=== PATIENT | female | born 1945 | race Caucasian/White ===

== ENCOUNTER 2016-06-05 15:07 | Emergency (ER) | payer OTHER, MEDICARE ==
[2016-06-05 15:18] VITALS: TEMP 97.3
--- NOTE | 2016-06-05 15:20 | EDPHY ---
H & P Time Seen by Provider: 06/05/16 15:18 HPI/ROS: CHIEF COMPLAINT: Altered mental status HISTORY OF PRESENT ILLNESS: Patient is a history of insulin-dependent diabetes and was last known to be normal at 9:00 a.m. today. Her later could return on the telephone, got a hold of the neighbor who got into the house through a garage door, and found the patient unresponsive in the house. Her glucose on EMS arrival was 28, she got 25 g IV dextrose bring her glucose up above 160, and at the time I see her she is awake and has no complaints and is normally conversant. Denies biting her tongue. No headache chest pain neck or back pain. Not incontinent. She tells me she used her insulin without eating and that is likely why she was low as she has been low before. REVIEW OF SYSTEMS: Eye: no change in vision ENT: no sore throat Cardiac: no chest pain or syncope Pulmonary: no cough or SOB Abdomen: no vomiting, diarrhea, abdominal pain Musculoskeletal: no back pain Skin: no rash Neuro: no headache Constitutional: no fever : no urinary symptoms A comprehensive 10 point review of systems is otherwise negative aside from elements mentioned in the history of present illness. PAST MEDICAL HISTORY: Includes insulin-dependent diabetes Social history: , but her 's out of town General Appearance: Alert and conversant, cooperative. Eyes: No scleral icterus. ENT, Mouth: Normal mucous membranes. No tongue laceration or abrasion Respiratory: Normal respiratory effort, breath sounds equal, lungs are clear to auscultation. Cardiovascular: Regular rate and rhythm. 2/6 systolic murmur. Gastrointestinal: Abdomen is soft and non tender. Neurological: Alert and oriented x3. Normally conversant. Face symmetric, normal movement and sensation in all extremities. Skin: Warm and dry, no rashes. Musculoskeletal: No peripheral edema and no joint swelling. Ulnar deviation both hands consistent with her known history of arthritis Psychiatric: Not agitated. Emergency Department course/MDM: Food, CBC chemistry, EKG in urine. Likely diabetic hypoglycemia from insulin and not enough carbohydrates. Called Dr. Mayers at 1526; recommends admit for serial glucose checks. [facility] came to the emergency department to assume care the patient and ultimately dispositioned her to home. Smoking Status: Former smoker Constitutional: Initial Vital Signs Temperature (C) 36.3 C 06/05/16 15:16 Heart Rate 76 06/05/16 15:16 Respiratory Rate 12 06/05/16 15:16 Blood Pressure 181/93 H 06/05/16 15:16 O2 Sat (%) 97 06/05/16 15:16 O2 Delivery Mode Room Air Allergies/Adverse Reactions: ciprofloxacin HCl [From Cipro] Allergy (Verified 02/18/14 11:54) codeine Allergy (Verified 02/18/14 11:54) ibuprofen [From Motrin] Allergy (Verified 02/18/14 11:54) Sulfa (Sulfonamide Antibiotics) Allergy (Verified 02/18/14 11:54) Home Medications: Medication Instructions Recorded Bupropion HCl [Wellbutrin Xl] 300 mg PO DAILY 11/09/12 Estradiol [Estrace Vaginal (*)] 1 manju VG HS PRN 11/09/12 Folic Acid [Folic Acid 1 MG (*)] 1 mg PO DAILY 11/09/12 Insulin Pump, Patient Own 1 ea [facility] [place] AD 11/09/12 Levothyroxine [Synthroid 88 mcg 88 mcg PO DAILY06 11/09/12 (*)] Metoprolol Succinate Xr [Toprol Xl 25 mg PO HS 11/09/12 25 mg (*)] Rosuvastatin Calcium [Crestor] 10 mg PO HS 11/09/12 Zolpidem Tartrate [Ambien 10 mg] 5 mg PO HS 11/09/12 predniSONE 5 mg PO DAILY 11/09/12 Certolizumab Pegol [CIMZIA] 200 mg SQ Q14D 02/18/14 Aspirin EC [Aspirin EC 81 mg (*)] 81 mg PO HS 06/05/16 Calcium Carb W/Vit D [Calcium Carb 500 mg PO BID 06/05/16 W/Vit D 500/200 (*)] Cyclobenzaprine [Flexeril 10 MG 5 mg PO HS 06/05/16 (*)] Denosumab [Prolia] 60 mg SQ .[id number] 06/05/16 Escitalopram Oxalate [Lexapro] 10 mg PO DAILY 06/05/16 Fluocinolone 0.01% [Synalar 0.01% 1 manju TP BID PRN 06/05/16 (RX)] Glucagon,Human Recombinant 1 mg IJ PRN PRN 06/05/16 [Glucagon Emergency Kit] Herbals/Supplements -Info Only 1 ea PO DAILY18 06/05/16 Losartan Potassium [Cozaar 50 mg 50 mg PO DAILY 06/05/16 (*)] Methotrexate Sodium [Rheumatrex 7.5 mg PO LYONS 06/05/16 2.5 mg (RX)] Mupirocin 2% [Bactroban 2% Oint 1 manju TP TID 06/05/16 (RX)] Niacin [Slo-Niacin] 1,000 mg PO HS 06/05/16 Pregabalin [Lyrica 75mg (*)] 75 mg PO TID 06/05/16 oxyCODONE/APAP 5/325 [Percocet 1 tab PO TID 06/05/16 5325 (*)] Medical Decision Making - Data Points Laboratory Results: Laboratory Results 06/05/16 15:20 06/05/16 15:20 06/05/16 06/05/16 06/05/16 16:56 16:38 15:20 WBC RBC Hgb POC Hgb 13.6 gm/dL gm/dL (12.3-15.9) Hct POC Hct 40 % % (35.5-47.5) MCV MCH MCHC RDW Plt Count MPV Neut % (Auto) Lymph % (Auto) [place] % (Auto) Eos % (Auto) Baso % (Auto) Nucleat RBC Rel Count Absolute Neuts (auto) Absolute Lymphs (auto) Absolute Monos (auto) Absolute Eos (auto) Absolute Basos (auto) Absolute Nucleated RBC Immature Gran % Immature Gran # POC Sodium 134 mEq/L mEq/L (134-144) Sodium 139 mEq/L mEq/L (134-144) POC Potassium > 9.0 mEq/L H* mEq/L (3.3-5.0) Potassium 4.2 mEq/L mEq/L (3.5-5.2) POC Chloride 109 mEq/L H mEq/L (96-108) Chloride 105 mEq/L mEq/L (97-110) Carbon Dioxide 25 mEq/l mEq/l (22-31) Anion Gap 9 mEq/L mEq/L (8-16) POC BUN 30 mg/dL H mg/dL (7-23) BUN 22 mg/dL mg/dL (7-23) Creatinine 0.8 mg/dL mg/dL (0.6-1.0) POC Creatinine 0.8 mg/dL mg/dL (0.6-1.2) Estimated GFR > 60 Glucose 84 mg/dL mg/dL (70-100) POC Glucose 173 mg/dL H mg/dL (70-100) Calcium 9.1 mg/dL mg/dL (8.5-10.4) Urine Color PALE YELLOW Urine Appearance CLEAR Urine pH 8.0 H (5.0-7.5) Ur Specific [place] 1.009 (1.002-1.030) Urine Protein 2+ H (NEGATIVE) Urine Ketones NEGATIVE (NEGATIVE) Urine Blood NEGATIVE (NEGATIVE) Urine Nitrate NEGATIVE (NEGATIVE) Urine Bilirubin NEGATIVE (NEGATIVE) Urine Urobilinogen NEGATIVE EU EU (0.2-1.0) Ur Leukocyte Esterase NEGATIVE (NEGATIVE) Urine RBC 1-3 /hpf /hpf (0-3) Urine WBC 1-3 /hpf /hpf (0-3) Ur Epithelial Cells NONE SEEN /lpf /lpf (NONE-1+) Ur Culture Indicated? NOT INDICATED (NI) Urine Glucose 1+ H (NEGATIVE) 06/05/16 06/05/16 15:20 15:17 WBC 9.85 10^3/uL H 10^3/uL (3.80-9.50) RBC 4.03 10^6/uL L 10^6/uL (4.18-5.33) Hgb 13.8 g/dL g/dL (12.6-16.3) POC Hgb 15.3 gm/dL gm/dL (12.3-15.9) Hct 40.9 % % (38.0-47.0) POC Hct 45 % % (35.5-47.5) MCV 101.5 fL H fL (81.5-99.8) MCH 34.2 pg H pg (27.9-34.1) MCHC 33.7 g/dL g/dL (32.4-36.7) RDW 14.9 % % (11.5-15.2) Plt Count 300 10^3/uL 10^3/uL (150-400) MPV 10.2 fL fL (8.7-11.7) Neut % (Auto) 71.5 % % (39.3-74.2) Lymph % (Auto) 17.0 % % (15.0-45.0) War[place] % (Auto) 7.9 % % (4.5-13.0) Eos % (Auto) 2.1 % % (0.6-7.6) Baso % (Auto) 0.8 % % (0.3-1.7) Nucleat RBC Rel Count 0.0 % % (0.0-0.2) Absolute Neuts (auto) 7.04 10^3/uL H 10^3/uL (1.70-6.50) Absolute Lymphs (auto) 1.67 10^3/uL 10^3/uL (1.00-3.00) Absolute Monos (auto) 0.78 10^3/uL 10^3/uL (0.30-0.80) Absolute Eos (auto) 0.21 10^3/uL 10^3/uL (0.03-0.40) Absolute Basos (auto) 0.08 10^3/uL 10^3/uL (0.02-0.10) Absolute Nucleated RBC 0.00 10^3/uL 10^3/uL (0-0.01) Immature Gran % 0.7 % % (0.0-1.1) Immature Gran # 0.07 10^3/uL 10^3/uL (0.00-0.10) POC Sodium 142 mEq/L mEq/L (134-144) Sodium POC Potassium 4.2 mEq/L mEq/L (3.3-5.0) Potassium POC Chloride 103 mEq/L mEq/L (96-108) Chloride Carbon Dioxide Anion Gap POC BUN 25 mg/dL H mg/dL (7-23) BUN Creatinine POC Creatinine 0.9 mg/dL mg/dL (0.6-1.2) Estimated GFR Glucose POC Glucose 88 mg/dL mg/dL (70-100) Calcium Urine Color Urine Appearance Urine pH Ur Specific [place] Urine Protein Urine Ketones Urine Blood Urine Nitrate Urine Bilirubin Urine Urobilinogen Ur Leukocyte Esterase Urine RBC Urine WBC Ur Epithelial Cells Ur Culture Indicated? Urine Glucose Point of Care Test Results: 06/05/16 06/05/16 15:17 16:56 POC Sodium 142 134 POC Potassium 4.2 > 9.0 H* POC Chloride 103 109 H POC BUN 25 H 30 H POC Creatinine 0.9 0.8 POC Glucose 88 173 H Departure - Departure Disposition: Home, Routine, Self-Care Clinical Impression: Hypoglycemia due to type 1 diabetes mellitus Condition: Good Instructions: Hypoglycemia in a Person with Diabetes (ED) Referrals: Cady Johnson MD [Primary Care Provider] - As per Instructions
--- NOTE | 2016-06-05 15:35 | CPEKG ---
Heart Rate: 68 RR Interval: 882 P-R Interval: 139 QRSD Interval: 82 QT Interval: 444 QTC Interval: 473 P [place]: 0 QRS [place]: -24 T Wave [place]: 52 EKG Severity - OTHERWISE NORMAL ECG - EKG Impression: SINUS RHYTHM EKG Impression: BORDERLINE LEFT AXIS DEVIATION Electronically Signed By: Osman Avila 05-Jun-2016 16:12:34
[2016-06-05 15:40] LABS: % IMMATURE GRANULYOCYTES 0.7 % (0.0-1.1); ABSOLUTE IMMATURE GRANULOCYTES 0.07 10^3/uL (0.00-0.10); ADD DIFF? NO; ADD MORPH? NO; ADD SCAN? NO; ATYPICAL LYMPHOCYTE FLAG 10 (0-99); FRAGMENT RBC FLAG 0 (0-99); HEMATOCRIT 40.9 % (38.0-47.0); HEMOGLOBIN 13.8 g/dL (12.6-16.3); LEFT SHIFT FLG 0 (0-99); LIPEMIA HEMOLYSIS FLAG 80 (0-99); MEAN CELL HEMOGLOBIN 34.2 pg (27.9-34.1); MEAN CELL HEMOGLOBIN CONCENTR. 33.7 g/dL (32.4-36.7); MEAN CELL VOLUME 101.5 fL (81.5-99.8); MEAN PLATELET VOLUME 10.2 fL (8.7-11.7); PLATELET CLUMPS FLAG 10 (0-99); PLATELET COUNT 300 10^3/uL (150-400); RED BLOOD CELL COUNT 4.03 10^6/uL (4.18-5.33); RED CELL DISTRIBUTION WIDTH 14.9 % (11.5-15.2)
[2016-06-05 16:07] LABS: ANION GAP 9 mEq/L (8-16); CALCIUM 9.1 mg/dL (8.5-10.4); CARBON DIOXIDE 25 mEq/l (22-31); CHLORIDE 105 mEq/L (97-110); CREATININE 0.8 mg/dL (0.6-1.0); GLOMERULAR FILTRATION RATE > 60; GLUCOSE 84 mg/dL (70-100); POTASSIUM 4.2 mEq/L (3.5-5.2); SODIUM 139 mEq/L (134-144)
[2016-06-05 16:26] VITALS: BP 155/82; PULSE 65; RESP 16; O2SAT 98
[2016-06-05 17:08] LABS: COLOR PALE YELLOW; LEUKOCYTE ESTERASE,URINE NEGATIVE (NEGATIVE); NITRITE,URINE NEGATIVE (NEGATIVE)
--- NOTE | 2016-06-05 17:14 | PDCONSULT ---
Paralegal Supervisor Note: Met with patient. Hx reviewed, pt examined. She is feeling back to normal. Had plans to go to [place] tomorrow morning to spend a month there. Her is already there. The neighbor/friend who found her this morning is willing to stay with her tonight. She is used to having low blood sugars. Spoke with Dr. Mayers as well. As pt herself feels back to normal, we both feel it is ok for her to go home, as she will be supervised overnight, and then will be driven to airport in morning. It is a 90 minute flight, and she will be met by her at the airport. She will call Dr. Mayers if any concerns. Also advised her to decrease her insulin boluses. Dr. Mayers will check in with pt on Tuesday06/07/16, to adjust her insulin dosing. Blood sugars in ED have been ok.
== END 2016-06-05 17:15 | disposition home or self-care (01) ==
LOC: EDUNIT# → UNDOADMOB 15:36
DX: E10.649 Type 1 diabetes mellitus with hypoglycemia without coma (principal); Z87.891 Personal history of nicotine dependence; Z79.82 Long term (current) use of aspirin
CPT/HCPCS: 82947-QW

== ENCOUNTER → 2016-10-08 | Outpatient (CLI) | payer OTHER, MEDICARE | LOC: BHFA 14:00 | PROVIDERS: ATTEND Internal Medicine Cardiovascular Disease | DX: I25.10 Atherosclerotic heart disease of native coronary artery without angina pectoris (principal) | CPT/HCPCS: 78452; 93017; A9500; J2785 ==

== ENCOUNTER → 2016-10-13 | Outpatient (CLI) | payer OTHER, MEDICARE | LOC: FIMAGING 10:36 | PROVIDERS: ATTEND Internal Medicine | DX: Z12.31 Encounter for screening mammogram for malignant neoplasm of breast (principal); Z80.3 Family history of malignant neoplasm of breast | CPT/HCPCS: G0202 ==

== ENCOUNTER → 2016-10-19 | Outpatient (CLI) | payer OTHER, MEDICARE | LOC: BHFA 10:45 | PROVIDERS: ATTEND Internal Medicine Cardiovascular Disease | DX: I35.0 Nonrheumatic aortic (valve) stenosis (principal) ==

== ENCOUNTER 2016-11-03 19:37 | Inpatient (IN) | payer OTHER, MEDICARE ==
--- NOTE | 2016-11-03 20:04 | CPEKG ---
Heart Rate: 75 RR Interval: 800 P-R Interval: 156 QRSD Interval: 72 QT Interval: 392 QTC Interval: 438 P [place]: 61 QRS [place]: -7 T Wave [place]: 34 EKG Severity - NORMAL ECG - EKG Impression: SINUS RHYTHM Electronically Signed By: Agnes Cade 03-Nov-2016 21:28:22
--- NOTE | 2016-11-03 20:06 | EDPHY ---
H & P Stated Complaint: D-DIMER TODAY , HEADACHES AND COUGH X4 DAYS, SENT BY DOCTOR Time Seen by Provider: 11/03/16 19:40 HPI/ROS: CHIEF COMPLAINT: Headache, cough HISTORY OF PRESENT ILLNESS: This is a 71-year-old female who presents to the emergency department after being seen by her primary care physician earlier today with a positive D-dimer in the setting of a cough and recent travel. Patient relates that over the last 4 days she has had at very slight runny nose , cough productive of clear sputum, small amount of anterior chest tightness and a headache. She was seen by her primary care physician today. She had clear lungs, chest x-ray was not obtained, the patient was sent to have labs drawn. Patient's primary physician, Dr. Don, notice some tenderness over her temporal arteries. Sed rate as well as CRP were ordered as well as a D-dimer. Patient's D-dimer is elevated at 2.35. The patient was advised to return to the emergency department for further evaluation. Patient has no history of thromboembolic disease. She did travel back from [place], via airplane, over the weekend. She was seen by Dr. Clark, her primary manager communication 2 days ago for routine checkup. She also reports that 10 days ago she underwent a stress test, and echocardiogram which did not identify any acute abnormalities. Patient does report a small amount of edema at both ankles. Patient reports a low-grade fever. Her has also been ill with slight runny nose. She denies any palpitations, lightheadedness, dizziness. She denies any vomiting or diarrhea. No urinary complaints. Headache is bitemporal. No visual changes. No head trauma. Patient does report she feels "spacey ". REVIEW OF SYSTEMS: Aside from elements discussed in the HPI, a comprehensive 10-point review of systems was reviewed and is negative. PAST MEDICAL HISTORY: Insulin-dependent diabetes, rheumatoid arthritis, lupus, coronary artery disease with stents placed x2, hypertension, osteoporosis, hypothyroidism. SOCIAL HISTORY: Patient is here with her . VITAL SIGNS Reviewed by me. GENERAL: Pleasant, elderly female. Well-developed well-nourished. No respiratory distress. HEENT: Atraumatic. [place], EOMI. Mild tenderness along the bilateral temples. Eyes: No icterus, no injection. Mouth: Dry mucous membranes. No erythema or lesions. Neck: supple with no adenopathy. No meningismus. LUNGS: Clear to auscultation bilaterally, no wheezes, rhonchi or rales. CARDIAC: Regular rate and rhythm, prominent systolic ejection murmur. ABDOMEN: Soft, nontender, nondistended, bowel sounds normal. BACK: No CVA tenderness. EXTREMITIES: No trauma. Mild swelling at both ankles. Deformities and swelling of multiple finger joint secondary to rheumatoid arthritis. NEURO: Alert and oriented, grossly nonfocal. SKIN: Warm and dry, no rash. PSYCHIATRIC: Normal mentation, no agitation. - Personal History Current Tetanus/Diphtheria Vaccine: Yes Tetanus Vaccine Date: 2014 - Medical/Surgical History Hx Asthma: No Hx Chronic Respiratory Disease: No Hx Diabetes: Yes Hx Cardiac Disease: Yes Hx Renal Disease: No Hx Cirrhosis: No Hx Alcoholism: No Hx HIV/AIDS: No Hx Splenectomy or Spleen Trauma: No Other PMH: medical Htn, diabetes, arthritis(RA), Lupus,CAD. surgery back surgery x 6, right wrist repair, tonsillectomy, cardiac stents x2 , MAC DEGEN, OSTEOPOROSIS,HYPOTHYROID, - Social History Smoking Status: Former smoker Constitutional: Initial Vital Signs Temperature (C) 37.6 C 11/03/16 19:41 Heart Rate 82 11/03/16 19:41 Respiratory Rate 20 11/03/16 19:41 Blood Pressure 95/63 L 11/03/16 19:41 O2 Sat (%) 94 11/03/16 19:41 O2 Delivery Mode Room Air Allergies/Adverse Reactions: ciprofloxacin HCl [From Cipro] Allergy (Verified 11/03/16 19:40) codeine Allergy (Verified 11/03/16 19:40) ibuprofen [From Motrin] Allergy (Verified 11/03/16 19:40) Sulfa (Sulfonamide Antibiotics) Allergy (Verified 11/03/16 19:40) cephalexin [From Keflex] Adverse Reaction (Unverified 11/03/16 19:41) Home Medications: Medication Instructions Recorded Bupropion HCl [Wellbutrin Xl] 300 mg PO DAILY 11/09/12 Estradiol [Estrace Vaginal (*)] 1 manju VG HS PRN 11/09/12 Folic Acid [Folic Acid 1 MG (*)] 1 mg PO DAILY 11/09/12 Insulin Pump, Patient Own 1 ea MISC AD 11/09/12 Levothyroxine [Synthroid 88 mcg 88 mcg PO DAILY06 11/09/12 (*)] Metoprolol Succinate Xr [Toprol Xl 25 mg PO HS 11/09/12 25 mg (*)] Rosuvastatin Calcium [Crestor] 10 mg PO HS 11/09/12 Zolpidem Tartrate [Ambien 10 mg] 5 mg PO HS 11/09/12 predniSONE 5 mg PO DAILY 11/09/12 Aspirin EC [Aspirin EC 81 mg (*)] 81 mg PO HS 06/05/16 Calcium Carb W/Vit D [Calcium Carb 500 mg PO BID 06/05/16 W/Vit D 500/200 (*)] Cyclobenzaprine [Flexeril 10 MG 5 mg PO HS 06/05/16 (*)] Denosumab [Prolia] 60 mg SQ .[id number] 06/05/16 Escitalopram Oxalate [Lexapro] 10 mg PO DAILY 06/05/16 Fluocinolone 0.01% [Synalar 0.01% 1 manju TP BID PRN 06/05/16 (RX)] Glucagon,Human Recombinant 1 mg IJ PRN PRN 06/05/16 [Glucagon Emergency Kit] Herbals/Supplements -Info Only 1 ea PO DAILY18 06/05/16 Losartan Potassium [Cozaar 50 mg 50 mg PO DAILY 06/05/16 (*)] Methotrexate Sodium [Rheumatrex 7.5 mg PO LYONS 06/05/16 2.5 mg (RX)] Mupirocin 2% [Bactroban 2% Oint 1 manju TP TID 06/05/16 (RX)] Niacin [Slo-Niacin] 1,000 mg PO HS 06/05/16 Pregabalin [Lyrica 75mg (*)] 75 mg PO TID 06/05/16 oxyCODONE/APAP 5/325 [Percocet 1 tab PO TID 06/05/16 5/325 (*)] AZITHROMYCIN 11/03/16 Xeljanz 11/03/16 Medical Decision Making - Diagnostics Imaging Results: Imaging Impressions Chest/Thorax CTA 11/03/16 20:10 Impression: 1. No pulmonary embolic disease. 2. Coronary artery and possible aortic valve disease. 3. No pneumonia. Results were discussed with Agnes Cade MD, at 11/03/2016 20:55 General information for patients regarding this examination can be found at [email or web address]. If you have questions or comments about this report, please contact me at [phone] (hospital) or [phone] (cell). ED Course/Re-evaluation: 71-year-old patient presents to the emergency department with reports of cough, low-grade fever, and some chest tightness for 4 days. EKG demonstrates sinus rhythm with no ischemic changes. Patient's sodium is 126. She has been complaining of feeling somewhat fuzzy in the head. Troponin is elevated 0.069. Results: CT scan of the chest for pulmonary embolism was obtained. I viewed the images independently on the PACS system. I discussed the results of the study with the radiologist. Impression: No pneumonia, no pulmonary embolism. Please see the full radiology report. Patient will be admitted to the hospital for further evaluation of her borderline the elevated troponin, her BNP of 2170, her cough, her chest tightness and her hyponatremia. Differential Diagnosis: Differential diagnosis for the patient's cough was considered including but not limited to viral versus bacterial bronchitis, asthma, COPD, pulmonary emboli, upper respiratory infection, lower respiratory infection, cardiac causes, pulmonary edema, and bronchospasm. Consult/Admit Bed Type: Dr. Don, [facility] - Data Points Laboratory Results: Laboratory Results 11/03/16 20:07 11/03/16 20:07 11/03/16 11/03/16 11/03/16 20:07 20:07 20:00 WBC 3.13 10^3/uL L 10^3/uL (3.80-9.50) RBC 3.40 10^6/uL L 10^6/uL (4.18-5.33) Hgb 11.7 g/dL L g/dL (12.6-16.3) POC Hgb 12.9 gm/dL gm/dL (12.6-16.3) Hct 33.6 % L % (38.0-47.0) POC Hct 38 % % (38-47) MCV 98.8 fL fL (81.5-99.8) MCH 34.4 pg H pg (27.9-34.1) MCHC 34.8 g/dL g/dL (32.4-36.7) RDW 15.1 % % (11.5-15.2) Plt Count 211 10^3/uL 10^3/uL (150-400) MPV 9.7 fL fL (8.7-11.7) Neut % (Auto) 41.8 % % (39.3-74.2) Lymph % (Auto) 37.1 % % (15.0-45.0) Bertie % (Auto) 19.5 % H % (4.5-13.0) Eos % (Auto) 0.3 % L % (0.6-7.6) Baso % (Auto) 1.0 % % (0.3-1.7) Nucleat RBC Rel Count 0.0 % % (0.0-0.2) Absolute Neuts (auto) 1.31 10^3/uL L 10^3/uL (1.70-6.50) Absolute Lymphs (auto) 1.16 10^3/uL 10^3/uL (1.00-3.00) Absolute Monos (auto) 0.61 10^3/uL 10^3/uL (0.30-0.80) Absolute Eos (auto) 0.01 10^3/uL L 10^3/uL (0.03-0.40) Absolute Basos (auto) 0.03 10^3/uL 10^3/uL (0.02-0.10) Absolute Nucleated RBC 0.00 10^3/uL 10^3/uL (0-0.01) Immature Gran % 0.3 % % (0.0-1.1) Immature Gran # 0.01 10^3/uL 10^3/uL (0.00-0.10) POC Sodium 129 mEq/L L mEq/L (134-144) Sodium 126 mEq/L L mEq/L (134-144) POC Potassium 4.3 mEq/L mEq/L (3.3-5.0) Potassium 4.3 mEq/L mEq/L (3.5-5.2) POC Chloride 91 mEq/L L mEq/L (97-110) Chloride 91 mEq/L L mEq/L (97-110) Carbon Dioxide 24 mEq/l mEq/l (22-31) Anion Gap 11 mEq/L mEq/L (8-16) POC BUN 16 mg/dL mg/dL (7-23) BUN 16 mg/dL mg/dL (7-23) Creatinine 1.0 mg/dL mg/dL (0.6-1.0) POC Creatinine 1.1 mg/dL H mg/dL (0.6-1.0) Estimated GFR 55 Glucose 176 mg/dL H mg/dL (70-100) POC Glucose 184 mg/dL H mg/dL (70-100) Calcium 8.7 mg/dL mg/dL (8.5-10.4) Troponin I 0.069 ng/mL H ng/mL (0.000-0.034) NT-Pro-B Natriuret Pep 2170 pg/mL H pg/mL (0-125) Medications Given: Discontinued Medications Sodium Chloride (Ns) 500 mls @ 1,000 mls/hr IV EDNOW ONE PRN Reason: Protocol Stop: 11/03/16 20:39 Last Admin: 11/03/16 20:16 Dose: 500 mls Point of Care Test Results: 11/03/16 20:00 POC Sodium 129 L POC Potassium 4.3 POC Chloride 91 L POC BUN 16 POC Creatinine 1.1 H POC Glucose 184 H Departure - Departure Disposition: [facility] Inpatient Acute Clinical Impression: Elevated troponin, Hyponatremia, Cough Condition: Fair Referrals: UNKNOWN,MARCIA [Other] - As per Instructions
[2016-11-03] MEDS ORDERED: NS 500 ML IV ONE (20:10)
[2016-11-03] MEDS ORDERED: IOPAMIDOL (ISOVUE 370) 100 ML BTL IV ONE (20:17)
[2016-11-03 20:22] LABS: % IMMATURE GRANULYOCYTES 0.3 % (0.0-1.1); ABSOLUTE IMMATURE GRANULOCYTES 0.01 10^3/uL (0.00-0.10); ADD DIFF? NO; ADD MORPH? NO; ADD SCAN? NO; ATYPICAL LYMPHOCYTE FLAG 0 (0-99); FRAGMENT RBC FLAG 0 (0-99); HEMATOCRIT 33.6 % (38.0-47.0); HEMOGLOBIN 11.7 g/dL (12.6-16.3); LEFT SHIFT FLG 0 (0-99); LIPEMIA HEMOLYSIS FLAG 90 (0-99); MEAN CELL HEMOGLOBIN 34.4 pg (27.9-34.1); MEAN CELL HEMOGLOBIN CONCENTR. 34.8 g/dL (32.4-36.7); MEAN CELL VOLUME 98.8 fL (81.5-99.8); MEAN PLATELET VOLUME 9.7 fL (8.7-11.7); PLATELET CLUMPS FLAG 0 (0-99); PLATELET COUNT 211 10^3/uL (150-400); RED CELL DISTRIBUTION WIDTH 15.1 % (11.5-15.2)
[2016-11-03 20:26] LABS: ANION GAP 11 mEq/L (8-16); CALCIUM 8.7 mg/dL (8.5-10.4); CARBON DIOXIDE 24 mEq/l (22-31); CHLORIDE 91 mEq/L (97-110); GLOMERULAR FILTRATION RATE 55; GLUCOSE 176 mg/dL (70-100); POTASSIUM 4.3 mEq/L (3.5-5.2); SODIUM 126 mEq/L (134-144)
[2016-11-03 20:38] LABS: TROPONIN I 0.069 ng/mL (0.000-0.034)
[2016-11-03] MEDS ORDERED: ASPIRIN 81 MG CHEWABLE TAB PO ONE (21:07)
--- NOTE | 2016-11-03 23:08 | SOAPPROG ---
KELLIE Progress Note Assessment/Plan: Assessment: Plan: 11/03/16 23:28 CHF: based on elevated BNP. Appears to be mildly fluid overloaded with edema, low Na. Just had echo done 10/19/16 which showed mild concentric hypertrophy, normal LV function with EF 67%, LV diastolic dysfunction, normal RV function with normal pressures, stable moderate aortic stenosis with aortic valve area .92cm2. Given that she is clinically stable, will wait until the morning to give dose lasix. As far as I can tell, BNP has not been checked in past. Indeterminate troponin: Had normal stress test on 10/08/16. Additionally, her coronary calcium score has been very stable. On her most recent EBCT heart scan , her Agatston score had regressed by 1%. She has 3 vessel disease with hx of stenting. Doubt that her troponin is due to ischemia, but will follow. EKG normal, without ischemic change. Hyponatremia: suspect this is due to fluid overload as it is not usual for her. Na went down a little with 500 cc fluid bolus in ED. As noted above, will give dose lasix in morning. IDDM: having low blood sugars, so will monitor closely. Food options currently quite limited here in hospital as pt is also gluten free. Elevated ESR, CRP: I was concerned about possibility of temporal arteritis given PERALTA, mild tenderness over L temporal artery. Last CRP and ESR in office chart were done in 07/21 and were normal. She did see Dr. Poe recently, but that note is not in office chart. In the setting of RA, it is difficult to know if these elevated numbers are related to exacerbation of RA or not. She was just changed over from Cimzia to Xeljanz 10 days ago. Will reassess need for possible biopsy in morning. Rheumatoid arthritis: on methotrexate, Xeljanz, low dose prednisone, percocet, lyrica. Aortic stenosis: stable on recent echo Cough: started on Zpak earlier today. Has taken 500mg today, so will continue with 250mg daily starting tomorrow. Hyptension: on losartan, metoprolol. Will continue. Hyperlipidemia: on Crestor Hypothyroid: on levothyroxine. DVT Prophylaxis: lovenox 11/03/16 23:31 11/04/16 00:06 Subjective: 71 yo woman with hx of type 1 diabetes, RA, CAD was seen in the office today for a cough and PERALTA. Sx began 4 days ago, after returning from trip to [place]. Flew home 10/31/16, and that day developed PERALTA, cough productive of minimal clear sputum, fatigue. She felt mildly SOB and chest felt heavy. C/o fatigue, fuzzy memory, and spent a lot of time resting. She had a low grade temp to 99.2. No sore throat, sinus pain. Headache was in the region of both temples. In the office, her O2 saturation was mildly low at 89%. She was mildly tender over her L temporal artery, but the remainder of her exam was unremarkable. She did see her manager procurement, Dr. Clark on 11/01/16, and noted some increased lower extremity edema, but this was improved by today. Due to her recent travel hx, mild hypoxia, SOB, and chest heaviness, a d-dimer was checked and found to be elevated at 2.35. ESR was also high at 52, and CRP was up at 14.2. Due to the elevated d-dimer, pt was contacted and advised to go to ER for further evaluation. In the ED, CT angiogram was negative for PE. EKG was normal. Her troponin was indeterminate at 0.069. BNP was high at 2170, Na low at 129, so she was admitted for further evaluation. Currently, she isn't feeling very well. Her PERALTA resolved, though she feels it is coming back. She feels her blood sugar is low. It was checked and was found to be <40. She has had some orange juice and applesauce and is feeling better. She is on an insulin pump. She didn't feel very hungry this evening so didn't eat much dinner. Objective: Vital Signs Temp Pulse Resp BP Pulse Ox 37.6 C 64 14 127/71 H 90 L 11/03/16 22:06 11/03/16 22:06 11/03/16 22:06 11/03/16 22:06 11/03/16 22:06 General: tired appearing, eyes a little droopy, NAD HEENT: Normocephalic, atraumatic. PERRL, EOMI. Mild tenderness over L temporal artery. R TM obscured by cerumen. L TM clear. Sinuses NT. O/p without erythema, exudates Neck: supple, no adenopathy Lungs: clear bilaterally Cardiovascular: RRR with 3/6 systolic murmur Abdomen: +bowel sounds, soft, NT. No hepatosplenomegaly, masses Extremities: mild BLE edema Musculoskeletal: deformity in hands consistent with RA Neurologic: awake, alert though less so as blood sugar drops. No confusion. Moving all extremities. ICD10 Worksheet Patient Problems: Problems Problem Status Onset Cough Acute Elevated troponin Acute Hyponatremia Acute Infection due to resistant organism Active
[2016-11-03] MEDS ORDERED: ACETAMINOPHEN 325 MG TAB PO PRN (23:54)
[2016-11-03] MEDS ORDERED: LACTULOSE 20 GM/30 ML UDCUP PO PRN (23:54)
[2016-11-03] MEDS ORDERED: ONDANSETRON 4 MG/2 ML VIAL IVP PRN (23:54)
[2016-11-03] MEDS ORDERED: MAGNESIUM HYDROXIDE 30 ML UDCUP PO PRN (23:54)
[2016-11-03] MEDS ORDERED: BISACODYL 10 MG SUPP PR PRN (23:54)
[2016-11-03] MEDS ORDERED: ONDANSETRON DISINTEGRATING 4 MG TAB PO PRN (23:54)
[2016-11-03] MEDS ORDERED: POLYETHYLENE GLYCOL 3350 17 GM PKT PO PRN (23:54)
[2016-11-04] MEDS ORDERED: INSULIN PUMP, PATIENT OWN 1 EA MISC SCH
[2016-11-04] MEDS ORDERED: HYDROCODONE/HOMATROPINE HYCODAN 5 ML UDL PO PRN
[2016-11-04] MEDS ORDERED: GLUCAGON HUMAN RECOMBINANT 1 MG IJ PRN
[2016-11-04] MEDS ORDERED: FAMOTIDINE 20 MG TAB PO PRN
[2016-11-04] MEDS ORDERED: D10W 250 ML PRN HYPOGLYCEMIA IV (01:30)
--- NOTE | 2016-11-04 01:39 | GHP ---
[f rep st] HISTORY AND PHYSICAL DATE OF ADMISSION: 11/03/2016 HISTORY OF PRESENT ILLNESS: The patient is a 71-year-old woman with a history of multiple medical problems, including type 1 diabetes, rheumatoid arthritis and coronary artery disease, who was seen in the office today for a cough and headache. Her symptoms began 4 days ago after returning from a trip to [place]. She flew home on Monday, October 31, 2016, and that day developed a headache, a cough productive of a minimal amount of clear sputum, and fatigue. She feels mildly short of breath, and her chest felt somewhat heavy. She was also fatigued and felt her memory was fuzzy. She spent a lot of her time resting and sleeping. At one point, she noted a low-grade temperature of 99.2. She denied any sore throat or sinus pain. Her headache was in the region of both temples. In the office her oxygen saturation was mildly low at 89%. She was mildly tender over her left temporal artery, but the remainder of her exam was unremarkable. She did see her veterans contact representative Dr. Clark on Tuesday, November 01, 2016, and was noted to have some increased lower extremity edema following her flight home, but this is improved today. Due to her recent travel history, mild hypoxia, shortness of breath and chest heaviness, a D-dimer was checked and found to be elevated at 2.35. Sedimentation rate was also high at 52 and CRP was elevated at 14.2. Due to the elevated D-dimer, the patient was contacted and advised to go to the emergency department for further evaluation. In the emergency department, her CT angiogram was negative for pulmonary embolism. There was also no pneumonia. Her EKG was normal. Her troponin was indeterminate at 0.069. Her BNP was elevated at 2170, and her sodium was low 129, so she was admitted for further evaluation. Currently, at the bedside, she is not feeling very well. Her headache has resolved, although she feels it is about to come back. She senses that her blood sugar is low. It was checked and found to be less than 40. She was given some orange juice and apple sauce and is now feeling better. She is on insulin pump. She did not feel very hungry this evening prior to coming to the emergency department, so did not eat much dinner. PAST MEDICAL HISTORY: Significant for coronary artery disease status post 2 stents in 2003, high cholesterol, shingles, hypertension, nocturnal hypoxia, insulin-dependent diabetes mellitus, aortic stenosis, rheumatoid arthritis, lupus in remission, hypothyroidism, and osteoporosis. MEDICATIONS: Lexapro 10 mg daily, bupropion XL 300 mg daily, prednisone 5 mg daily, mupirocin 2% ointment 3 times daily, Crestor 10 mg daily, losartan 100 mg daily, zolpidem 5 mg at bedtime, cyclobenzaprine 10 mg 1/2 to 1 tablet at bedtime, glucagon emergency kit as needed, fluocinolone acetonide 0.01% to affected areas b.i.d., Metoprolol succinate extended release 25 mg daily, nicotinic acid 1000 mg daily though she has recently discontinued this, Lyrica 75 mg 3 times daily, folic acid 1 mg daily, calcium 600 mg plus D, aspirin 81 mg , levothyroxine 88 mcg daily, Prolia 60 mg/mL subcu every 6 months, methotrexate 2.5 mg once weekly, insulin pump, Zantac 75 mg twice a day, Xeljanz XR 11 mg daily. ALLERGIES: Sulfa, codeine, Motrin, Macrobid, Keflex, gluten. PAST SURGICAL HISTORY: Dupuytren's contracture, facial laser, L2 through L4 fusion redo, left trigger thumb release, L2 kyphoplasty, L3-4 laminectomy, L4-5 fusion, trigger finger right 4th finger, tonsillectomy, adenoidectomy, stent x2 in 2003, L1-2 fusion with extension to L4 by Dr. Goel in 2014, right hand surgery. FAMILY HISTORY: Father at 89, history of CVA, hip fracture. Mother Crohn disease. Sister of sepsis in 2010. She had scleroderma, rheumatoid arthritis, and osteoarthritis. She has 1 brother who is healthy. REVIEW OF SYSTEMS: GENERAL: She is complaining of fatigue, fever, chills, and headache. HEENT: Mild nasal drainage. No sore throat. RESPIRATORY: Mild shortness of breath. Mildly productive cough. No wheezing. CARDIOVASCULAR: Chest heaviness without overt chest pain. No arrhythmias or palpitations. GI: No nausea, vomiting, diarrhea, or constipation. No abdominal pain. : No hematuria, dysuria. MUSCULOSKELETAL: She has pain in her hands and feet from her rheumatoid arthritis. NEUROLOGIC: Her headache has resolved, though maybe coming back. She denies any numbness or tingling. Her mental function does not seem quite so fussy now. PSYCHIATRIC: No depression or anxiety. PHYSICAL EXAMINATION: VITAL SIGNS: Temp is 37.6, pulse is 64, respirations 14 , blood pressure 127/71, O2 saturation is 90% on room air. LABORATORY DATA: White blood cell count is mildly low at 3.13, hemoglobin 11.7 , hematocrit 33.6, platelet count 211. Sodium is 129, potassium 4.3, chloride 91, BUN 16, creatinine 1.1. Glucose 184. Troponin 0.069. BNP 2170. D-dimer 2.35, sedimentation rate 52, CRP 14.2. EKG shows a normal sinus rhythm. ASSESSMENT AND PLAN: 1. Congestive heart failure. To my knowledge, this is a new diagnosis. This is based on her elevated BNP. She appears to be mildly fluid overloaded with her mild lower extremity edema and low sodium. She just had an echo done October 19, 2016, which showed mild concentric hypertrophy, normal LV function with an EF of 67%, LV diastolic dysfunction. Normal RV function with normal pressures. Stable moderate aortic stenosis with aortic valve area of 0.92 cm. Given that she is clinically stable, will wait until the morning to give her doses of Lasix. As far as I can tell, she has not had a BNP checked in the past. 2. Indeterminate troponin. She had a normal stress test on October 08, 2016. Additionally, her coronary calcium score has been very stable, and on her most recent EBCT heart scan, her Agatston score had actually regressed by 1%. She has 3 vessel disease with a history of stenting. I doubt that her troponin is due to ischemia, but will follow serial troponins. Her EKG is normal without evidence of ischemic change. 3. Hyponatremia. I suspect this is due to fluid overload, as it is not usual for her. Her sodium did go down a little from 129-126 with a 500 mL fluid bolus in the emergency department. As noted above, we will wait until the morning to give her Lasix, so that she is not up all night urinating. 4. Insulin-dependent diabetes mellitus. She is having low blood sugars currently, so we will continue to monitor closely. She is on insulin pump, which she adjusts. Food options are currently quite limited in the hospital at this time of day. The patient is also gluten free. 5. Elevated ESR and CRP. I was concerned about the possibility of temporal arteritis given her headache and mild tenderness over her left temporal artery. Her last CRP and ESR in her office chart were done in July of 2016 and were normal. She did see Dr. Poe recently, but that note is not in her office chart. In the setting of rheumatoid arthritis, it is difficult to note if these elevated numbers are related to an exacerbation of her rheumatoid arthritis or not. She was just changed over from Cimzia to Xeljanz 10 days ago. We will reassess her for possible biopsy in the morning. 6. Rheumatoid arthritis on methotrexate, Xeljanz, prednisone, Percocet, and Lyrica. 7. Aortic stenosis. Stable on echo. 8. Cough. She was started on a Z-Rj earlier today. She has already taken 500 mg today, so we will continue with 250 mg daily starting tomorrow. 9. Hypertension. She is on losartan and metoprolol, and we will continue this. 10. Hyperlipidemia on Crestor. 11. Hypothyroid on levothyroxine. 12. Deep venous thrombosis prophylaxis. Lovenox 30 mg subcu daily. /[id number]/MODL MTDD
[2016-11-04] MEDS ORDERED: OXYCODONE/APAP 5/325 TAB PO ONE (04:45)
[2016-11-04] MEDS ORDERED: CYCLOBENZAPRINE 10 MG TAB PO ONE (04:45)
[2016-11-04 05:34] LABS: ANION GAP 11 mEq/L (8-16); CALCIUM 8.1 mg/dL (8.5-10.4); CARBON DIOXIDE 22 mEq/l (22-31); CHLORIDE 92 mEq/L (97-110); CREATININE 1.1 mg/dL (0.6-1.0); GLOMERULAR FILTRATION RATE 49; GLUCOSE 342 mg/dL (70-100); MAGNESIUM 1.9 mg/dL (1.6-2.3); POTASSIUM 5.2 mEq/L (3.5-5.2); SODIUM 125 mEq/L (134-144)
[2016-11-04 05:40] LABS: TROPONIN I 0.045 ng/mL (0.000-0.034)
[2016-11-04] MEDS: ENOXAPARIN 30 MG/0.3 ML SYR SC SCH (08:45)
[2016-11-04] MEDS: PREGABALIN 75 MG CAP PO SCH ×3 (08:45→21:01)
[2016-11-04] MEDS: OXYCODONE/APAP 5/325 TAB PO SCH ×3 (08:45→22:14)
[2016-11-04] MEDS: ESCITALOPRAM OXALATE 10 MG TAB PO SCH (08:45)
[2016-11-04] MEDS: buPROPion XL 150 MG TAB PO SCH (08:48)
[2016-11-04] MEDS: SENNOSIDES/DOCUSATE SODIUM TAB PO SCH ×2 (08:48→21:03)
[2016-11-04] MEDS: LEVOTHYROXINE 88 MCG TAB PO SCH (08:49)
[2016-11-04] MEDS: predniSONE 5 MG TAB PO SCH (08:49)
[2016-11-04] MEDS: AZITHROMYCIN 250 MG TAB PO SCH (08:49)
[2016-11-04] MEDS: FOLIC ACID 1 MG TAB PO SCH (08:49)
[2016-11-04] MEDS: MUPIROCIN 2% 22 GM OINT TP SCH ×3 (08:50→22:15)
[2016-11-04] MEDS: LOSARTAN POTASSIUM 50 MG TAB PO SCH (08:52)
[2016-11-04 09:35] LABS: ANION GAP 6 mEq/L (8-16); CALCIUM 8.4 mg/dL (8.5-10.4); CARBON DIOXIDE 28 mEq/l (22-31); CHLORIDE 93 mEq/L (97-110); GLOMERULAR FILTRATION RATE 55; GLUCOSE 223 mg/dL (70-100); SODIUM 127 mEq/L (134-144)
[2016-11-04] MEDS ORDERED: FUROSEMIDE 40 MG/4 ML VIAL IVP ONE (09:43)
--- NOTE | 2016-11-04 09:52 | SOAPPROG ---
SOAP Progress Note Assessment/Plan: Assessment: 71 yo female w/ URI, RA, IDDM, w/ hyponatremia - -Hyponatremia - dw Dr Poe not likely 2/2 Xeljanz but more for URI which can be 2/2 Xelanz (known for URI's and h/a's) - given immunosuppression for URI difficult for Doreen to fight infections - was started on azithromycin yesterday , will cont. Will fluid restrict. Concentrated fluids. Will be given single dose lasix now. Will recheck sodium this afternoon. -URI - spouse w/ recent URI, she is on immunosuppressant meds for RA, will hold Xeljanz for now and dw Dr Poe as he just started this 10-14 d prior as her prior med not doing enough. Xeljanz increases frequencies of URI's. Cont azithromycin, cpap, oxygen as needed, add nebs. -RA w/ elev crp/esr - w/ recent change of meds see above - likely inflammatory markers elev from this but does have h/o endocarditis and will check echo and blood cultures to be sure. -IDDM - glucose numbers higher than usual - she is on an insulin pump and knows how to adjust this -she is working on this currently and numbers up 2/2 infection. Cont fsbs check. -elev BNP - known significant ht ds but has been very stable, just had full recent cardiac w/u with Dr Clark last week and all was fine, getting comparison echo this am given h/o endocarditis, immunsupression see above. -dispo - likely will require >2MN due to hyponatremia, URI, immunosuppression and r/o endocarditis. -dvt proph lovenox Plan: 11/04/16 09:44 Subjective: DOing ok, tired, h/a better, coughing Objective: Vital Signs Temp Pulse Resp BP Pulse Ox 36.7 C 70 16 90/52 L 96 11/04/16 07:31 11/04/16 07:31 11/04/16 07:31 11/04/16 08:52 11/04/16 07:31 Laboratory Results 11/04/16 09:05 11/03/16 11/04/16 11/05/16 05:59 05:59 05:59 Intake Total 650 Balance 650 Gen: pleasant, A&Ox 4 NEck: soft supple Chest: few rhonchi cleared w/ cough CV: rrr nl s1 s2, 3/6 SARIKA (not new) Abd: soft nt nd nl bs Ext: trace-1 edema ble - Pending Discharge Pending Discharge Within 24 Hours: No ICD10 Worksheet Patient Problems: Problems Problem Status Onset 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
[2016-11-04] MEDS ORDERED: IPRATROPIUM/ALBUTEROL 3 ML DEYVIAL IH PRN (09:54)
--- NOTE | 2016-11-04 12:17 | ECHO ---
[id number] + + [address] : : [place] [address] : : [phone] + + Adult Echocardiographic Report + -----+ :Name: TOLU IBARRA SStudy Date: 11/04/2016 10:46 AM : : Hospital Admission Number: [id number] Location : 212: :: 1945 Gender: Female Height: 65 in : :Age: 71 yrs Race: WH Weight: 137 lb : :Reason For Study: Eval LV Fx : : BSA: 1.7 meters2 : :History: New onset fluid overlaod, SOB : + -----+ MMode/2D Measurements \T\ Calculations IVSd: 0.80 cm LVIDd: 3.5 cm FS: 38.3 % Ao root diam: 2.8 cm LVPWd: 0.83 cm LVIDs: 2.1 cm EDV(Teich): 49.8 ml ACS: 0.59 cm ESV(Teich): 15.1 ml EF(Teich): 69.6 % LVOT diam: 1.9 cm LVOT area: 2.8 cm2 Normal Measurement Values: + + :LVIDd (3.5-5.7cm) IVSd (0.6-1.1cm) LVPWd (0.6-1.1cm) Aortic Root (2.0-3.7cm)Left Atrium (1.5-4.0cm): :LV Vol(d) (76-115ml) LV Vol(s) (29-48ml) Ejec Fraction (50-65%)PV Peña (0.6- 1.2m/s) TV Peña (0.4-1.0m/s) : :MV E Peña (0.8-1.0m/s)MV A Peña (0.3-1.0m/s)LVOT Peña (0.7-1.2m/s) Asc Ao Peña ( 0.9-1.8m/s) : + + Doppler Measurements \T\ Calculations MV E max peña: Ao V2 max: LV V1 mean PG: SV(LVOT): 84.4 cm/sec 335.3 cm/sec 7.3 mmHg 139.6 ml MV A max peña: Ao max P.0 mmHgLV V1 mean: 97.7 cm/sec Ao mean P.5 cm/sec MV E/A: 0.86 26.1 mmHg LV V1 VTI: 49.2 cm Ao V2 mean: 238.6 cm/sec Ao V2 VTI: 84.0 cm CARLENE(I,D): 1.7 cm2 PA V2 max: TR max peña: 85.5 cm/sec 251.1 cm/sec PA max P.9 mmHg TR max P.2 mmHg RAP systole: 5.0 mmHg RVSP(TR): 30.2 mmHg Left Ventricle The left ventricle is normal in size. There is normal left ventricular wall thickness. The left ventricular ejection fraction is normal. There is Doppler evidence for diastolic dysfunction. Ejection Fraction = 70%. The left ventricular wall motion is normal. Right Ventricle The right ventricle is normal in size and function. Atria The left atrial size is normal. Right atrial size is normal. Mitral Valve There is mild mitral annular calcification. There is no mitral valve stenosis. There is trace mitral regurgitation. Tricuspid Valve Normal tricuspid valve. There is trace tricuspid regurgitation. Right ventricular systolic pressure is normal. Aortic Valve There is moderate aortic valve calcification. The Ao mean PG is 26 mmHg with a Ao max PG mmHg 45 mmHg. Moderate valvular aortic stenosis. There is a calculated aortic valve area of 1.7 cm2. Pulmonic Valve The pulmonic valve is normal in structure and function. There is no pulmonic valvular regurgitation. Great Vessels The aortic root is normal size. Pericardium/Pleural There is no pericardial effusion. Conclusion A complete two-dimensional transthoracic echocardiogram was performed (2D, M-mode, Doppler and color flow Doppler). (1) Left ventricular systolic ejection fraction was normal (70%) - normal wall motion (2) No left ventricular hypertrophy (3) Diastolic dysfunction was present (4) Normal right ventricular size and function (5) Normal atrial dimensions (6) Physiologic mitral regurgitation (7) Trileaflet aortic valve with moderate sclerosis. Mild to moderate stenosis noted as well (mean gradient was 26 mm Hg with ACRLENE estimated to be 1.7 cm\S\2) (8) Physiologic tricuspid regurgitation - RVSP was normal (9) Grossly normal pulmonic valve (10) In comparison to the last hospital echo (02-05-15) the pronounced aortic echo density is not as visible. In comparison to outpatient echocardiogram (10-19-16) similar findings were noted. Final Reading Physician: Bella Rodriguez signed on 11/04/2016 12:16 PM Performed By: Aly Escobar, BHART[facility]
[2016-11-04] MEDS ORDERED: NS 500 ML IV ONE (12:32)
[2016-11-04] MEDS ORDERED: SODIUM CHLORIDE 1,000 MG TAB PO SCH (12:45)
[2016-11-04] MEDS: SODIUM CHLORIDE 1,000 MG TAB PO SCH (17:28)
[2016-11-04] MEDS: NS 1,000 ML IV SCH (19:01)
[2016-11-04] MEDS ORDERED: ROSUVASTATIN CALCIUM 10 MG TAB PO SCH (21:00)
[2016-11-04] MEDS ORDERED: ASPIRIN EC 81 MG TAB PO SCH (21:00)
[2016-11-04] MEDS ORDERED: ZOLPIDEM TARTRATE 5 MG TAB PO SCH (21:00)
[2016-11-04] MEDS ORDERED: CYCLOBENZAPRINE 10 MG TAB PO SCH (21:00)
[2016-11-04] MEDS ORDERED: METOPROLOL SUCCINATE XR 25 MG TAB PO SCH (21:00)
[2016-11-05 03:54] VITALS: O2SAT 97
[2016-11-05 04:57] LABS: % IMMATURE GRANULYOCYTES 0.3 % (0.0-1.1); ABSOLUTE IMMATURE GRANULOCYTES 0.01 10^3/uL (0.00-0.10); ADD DIFF? NO; ADD MORPH? NO; ADD SCAN? NO; ATYPICAL LYMPHOCYTE FLAG 20 (0-99); FRAGMENT RBC FLAG 0 (0-99); HEMATOCRIT 34.4 % (38.0-47.0); HEMOGLOBIN 11.7 g/dL (12.6-16.3); LEFT SHIFT FLG 0 (0-99); LIPEMIA HEMOLYSIS FLAG 90 (0-99); MEAN CELL HEMOGLOBIN 34.6 pg (27.9-34.1); MEAN CELL VOLUME 101.8 fL (81.5-99.8); MEAN PLATELET VOLUME 10.3 fL (8.7-11.7); PLATELET CLUMPS FLAG 0 (0-99); PLATELET COUNT 208 10^3/uL (150-400); RED BLOOD CELL COUNT 3.38 10^6/uL (4.18-5.33); RED CELL DISTRIBUTION WIDTH 15.5 % (11.5-15.2)
[2016-11-05 05:20] LABS: ANION GAP 7 mEq/L (8-16); CARBON DIOXIDE 24 mEq/l (22-31); CHLORIDE 105 mEq/L (97-110); CREATININE 0.9 mg/dL (0.6-1.0); GLOMERULAR FILTRATION RATE > 60; GLUCOSE 131 mg/dL (70-100); POTASSIUM 4.4 mEq/L (3.5-5.2); SODIUM 136 mEq/L (134-144)
[2016-11-05] MEDS: NS 1,000 ML IV SCH (05:43)
[2016-11-05] MEDS ORDERED: FUROSEMIDE 40 MG/4 ML VIAL IVP ONE (06:00)
[2016-11-05 07:57] VITALS: BP 101/46; PULSE 67; RESP 16; TEMP 98.7
[2016-11-05] MEDS: OXYCODONE/APAP 5/325 TAB PO SCH (08:29)
[2016-11-05] MEDS: FOLIC ACID 1 MG TAB PO SCH (08:29)
[2016-11-05] MEDS: buPROPion XL 150 MG TAB PO SCH (08:29)
[2016-11-05] MEDS: LEVOTHYROXINE 88 MCG TAB PO SCH (08:29)
[2016-11-05] MEDS: AZITHROMYCIN 250 MG TAB PO SCH (08:29)
[2016-11-05] MEDS: SENNOSIDES/DOCUSATE SODIUM TAB PO SCH (08:29)
[2016-11-05] MEDS: ENOXAPARIN 30 MG/0.3 ML SYR SC SCH (08:30)
[2016-11-05] MEDS: PREGABALIN 75 MG CAP PO SCH (08:30)
[2016-11-05] MEDS: predniSONE 5 MG TAB PO SCH (08:30)
[2016-11-05] MEDS: LOSARTAN POTASSIUM 50 MG TAB PO SCH (08:30)
[2016-11-05] MEDS: ESCITALOPRAM OXALATE 10 MG TAB PO SCH (08:30)
[2016-11-05] MEDS: SODIUM CHLORIDE 1,000 MG TAB PO SCH (08:30)
[2016-11-05] MEDS: MUPIROCIN 2% 22 GM OINT TP SCH (08:34)
--- NOTE | 2016-11-05 09:05 | SOAPPROG ---
SOAP Progress Note Assessment/Plan: Assessment: Plan: 11/05/16 09:04 bronchitis with immunosuppression--add augmentin TID with food. Rx called to [facility]. Complete Z-pack RA--hold Xeljanz hyponatremia related to illness, normalized, will continue with a balance of liquids and more salt at home, recheck next week Diastolic dysfunction--stable Subjective: Doreen is feeling much better. Cough is still moderately productive. No SOB, No CP. 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
--- NOTE | 2016-11-05 10:09 | ASMTCASEMG ---
Living Arrangements What is your living Answers: With Spouse arrangement? Who do you live with? Type Of Residence What kind of residence do Answers: House you live in? Discharge Plan Comments Coordination Status Comments Notes: Met w/ pt for dispo planning. Pt does not have any needs at this time. CM available for any changes. Date Signed: 11/05/2016 10:09 AM Electronically Signed By:Debbie Palmer
--- NOTE | 2016-11-05 11:20 | ASDISCHSUM ---
Discharge Information Plan Status:Home with No Needs Medically Cleared to Leave:11/05/2016 Discharge Date:11/05/2016 11:05 AM CM D/C Disposition:Home, Routine, Self-Care ADT D/C Disposition:Home, Routine, Self-Care Projected Discharge Date:11/05/2016 12:00 AM Transportation at D/C: Discharge Delay Reason: Follow-Up Date:11/05/2016 12:00 AM Discharge Slot: Final Diagnosis: Placement Information Patient Contact Information Contact Name:LIVE Relationship: Address:[address]ODR[address] City:[place] Alternate Phone: [facility]/Zip Code:[place] [address] Email: Financial Information Financial Class: Primary Plan Desc:MEDICARE INPATIENT Primary Plan Number:[id number] Secondary Plan Desc:[employer]/M[employer] SUPPLEMENT Secondary Plan Number:[id number] Assessment Information [facility] Initial CM Assessment Living Arrangements What is your living Answers: With Spouse arrangement? Who do you live with? Type Of Residence What kind of residence do Answers: House you live in? Discharge Plan Comments Coordination Status Comments Notes: Met w/ pt for dispo planning. Pt does not have any needs at this time. CM available for any changes. Date Signed: 11/05/2016 10:09 AM Electronically Signed By:Debbie Palmer Intervention Information Intervention Type:*AJSIEL-Signed Date of Service:11/04/2016 10:46 AM Patient Type:Observation Staff Member:Tiffany Calabrese Hours: Discipline: Severity: Comment:
[2016-11-07] MEDS ORDERED: METHOTREXATE 2.5 MG TAB PO SCH (09:00)
[2016-12-04] MEDS ORDERED: DENOSUMAB 60 MG/1 ML SQ SCH
== END 2016-11-05 11:05 | disposition home or self-care (01) | DRG 202 ==
LOC: F2W 21:59 → OBSVTOIN 11-04 11:08
PROVIDERS: ADMIT Internal Medicine; ATTEND Internal Medicine
DX: J20.9 Acute bronchitis, unspecified (principal); E87.1 Hypo-osmolality and hyponatremia; E10.649 Type 1 diabetes mellitus with hypoglycemia without coma; Z96.41 Presence of insulin pump (external) (internal); Z91.018 Allergy to other foods; M06.9 Rheumatoid arthritis, unspecified; M32.9 Systemic lupus erythematosus, unspecified; I25.10 Atherosclerotic heart disease of native coronary artery without angina pectoris; Z95.5 Presence of coronary angioplasty implant and graft; I35.0 Nonrheumatic aortic (valve) stenosis; I10 Essential (primary) hypertension; E03.9 Hypothyroidism, unspecified; M81.0 Age-related osteoporosis without current pathological fracture; E78.00 Pure hypercholesterolemia, unspecified; Z98.1 Arthrodesis status; Z87.891 Personal history of nicotine dependence
CPT/HCPCS: 82947-QW; G0378; J1650; J1940; Q9967

== ENCOUNTER → 2017-10-18 | Outpatient (CLI) | payer OTHER, MEDICARE | DX: Z12.31 Encounter for screening mammogram for malignant neoplasm of breast (principal); Z80.3 Family history of malignant neoplasm of breast; Z13.820 Encounter for screening for osteoporosis; M85.88 Other specified disorders of bone density and structure, other site; Z87.39 Personal history of other diseases of the musculoskeletal system and connective tissue; Z78.0 Asymptomatic menopausal state; Z79.83 Long term (current) use of bisphosphonates ==

== ENCOUNTER 2017-10-26 11:51 | Inpatient (IN) | payer OTHER, MEDICARE ==
[2017-10-26] MEDS ORDERED: FLUOCINOLONE 0.01% TP PRN (15:27)
[2017-10-26] MEDS ORDERED: NON-FORMULARY NEW DRUG (Denosumab [Prolia] 60 MG) SQ SCH (15:30)
[2017-10-26] MEDS ORDERED: BIOTENE DRY MOUTH ORAL RINSE 237 ML BTL MM PRN (15:58)
[2017-10-26] MEDS ORDERED: GLUCAGON HCL 1 MG VIAL IM PRN (16:15)
[2017-10-26] MEDS: oxyCODONE IR 5 MG TAB PO PRN ×2 (16:54→22:03)
[2017-10-26] MEDS: PREGABALIN 75 MG CAP PO SCH ×2 (17:00→21:52)
--- NOTE | 2017-10-26 17:45 | GHP ---
[f rep st] HISTORY AND PHYSICAL POST ADMISSION PHYSICIAN EVALUATION AND REHABILITATION TREATMENT PLAN DATE OF ADMISSION: 10/26/2017 DATE OF EVALUATION: 10/26/2017 TIME OF EVALUATION: 1540 REFERRING FACILITY: [facility] REFERRING PHYSICIAN: Jose Manuel Reynaga MD IMPAIRMENT GROUP: [id number]. DATE OF ONSET: 10/22/2017 REHABLITATION DIAGNOSIS: Left femur fracture status post intramedullary nailing. ETIOLOGIC DIAGNOSIS: Unilateral hip fracture. HISTORY OF PRESENT ILLNESS: This patient has osteoporosis as well as rheumatoid arthritis and has been on chronic prednisone. She fell on 10/22/2017 , and suffered a left subtrochanteric femur fracture. She underwent surgery with intramedullary nailing. She had a previous fall approximately 5 weeks ago with a left wrist fracture for which she has been nonweightbearing. She had surgery with Dr. Romero at [facility]. She also suffered a likely left ankle fracture in her fall and was placed in a left foot walking boot. 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 Hospital complications included anemia for which she received a blood transfusion. She had constipation which was treated with MiraLAX. She had hypotension which responded to fluids. She had hypoxia, and needed 1.5 L of oxygen overnight for an oxygen saturation of 90%. STUDIES AND LABS IN THE HOSPITAL: Her CBC post transfusion on 10/23/2017, had a hemoglobin of 11.9 and hematocrit of 36.3. It subsequently drifted down to 7.9 and 23.4, and on the day of hospital discharge, hemoglobin is 9.6 and hematocrit is 28.8. She had hyponatremia with a valerie sodium of 130 on 2017. On the day of hospital discharge, sodium is normal at 137. Renal function and electrolytes are otherwise within normal limits but for a low anion gap of 6. Liver function tests were overall normal but for a low albumin of 2.1. PRECAUTIONS: She is a fall risk. ACTIVE COMORBIDITIES: She has no tier 1, tier 2 or tier 3 comorbidities. PAST MEDICAL HISTORY: 1. Diabetes mellitus. 2. Rheumatoid arthritis. 3. Depression. 4. Postmenopausal state. 5. Hypothyroidism. 6. Hypertension. 7. Overactive bladder. 8. Neuropathic pain in the left knee. 9. Chronic insomnia. 10. Coronary artery disease. 11. Dyslipidemia. 12. Systemic lupus erythematosus. PAST SURGICAL HISTORY: 1. Left trigger finger release in the middle finger. 2. Right thumb trigger finger release. 3. Left cataract surgery. 4. Right cataract surgery. 5. Back surgery for stenosis at L3 and L4. 6. Skin graft in 2004. 7. Coronary stents in 2013. 8. Carpal tunnel release. PRE-HOSPITAL MEDICATIONS: 1. Methocarbamol 750 mg 1 p.o. t.i.d. 2. Bupropion 300 mg XL p.o. daily. 3. Escitalopram 10 mg p.o. daily. 4. Fluocinolone cream 0.01% to rash daily p.r.n. 5. Folic acid 1 mg p.o. daily. 6. Aspirin 81 mg p.o. daily. 7. Coenzyme Q10 200 mg 2 capsules p.o. daily. 8. Fish oil 1000 mg p.o. daily. 9. Vitamin D3 1000 units p.o. twice daily. 10. Cyclobenzaprine 5 mg p.o. q.h.s. 11. Colace 100 mg p.o. daily. 12. Cranberry tablets 2 q.a.m. 13. Estrace 0.1 mg cream vaginally 3 times per week. 14. Insulin lispro per insulin pump. 15. Magnesium 250 mg p.o. daily. 16. Multivitamin 1 p.o. daily. 17. Mirabegron 25 mg p.o. daily. 18. Metoprolol 25 mg p.o. daily. 19. Rosuvastatin 10 mg p.o. daily. 20. Prednisone 5 mg p.o. daily. 21. Zolpidem 5 mg p.o. q.h.s. 22. Pregabalin 75 mg p.o. t.i.d. 23. Levothyroxine 88 mg p.o. daily. 24. Denosumab injection twice a year. 25. Methotrexate 7.5 mg weekly on Tuesday. 26. Actinic acid 1000 mg p.o. daily. 27. Vitamin E 400 international units p.o. daily. 28. Tofacitinib 1 tablet daily. 29. Oxycodone 5 mg p.r.n. pain. ADMISSION MEDICATIONS: 1. Bupropion XL 300 mg p.o. daily. 2. Folic acid 1 mg p.o. daily. 3. Insulin per pump. 4. Levothyroxine 88 mcg p.o. daily. 5. Metoprolol XR 25 mg p.o. q.h.s. 6. Rosuvastatin 10 mg p.o. q.h.s. 7. Zolpidem 5 mg p.o. q.h.s. 8. Prednisone 4 mg p.o. daily. 9. Aspirin 81 mg p.o. q.h.s. 10. Cyclobenzaprine 10 mg p.o. q.h.s. 11. Denosumab 60 mg subcutaneous q.6 months with last dose on 06/01/2017. 12. Escitalopram 10 mg p.o. daily. 13. Fluocinolone 0.01% twice daily p.r.n. 14. Glucagon emergency kit 1 mg p.r.n. hypoglycemia. 15. Methotrexate 7.5 mg p.o. q. Tuesday. 16. Pregabalin 75 mg p.o. t.i.d. 17. Cholecalciferol 1000 units p.o. daily. 18. Docusate 100 mg p.o. q.h.s. 19. Estradiol vaginal Tuesday, Tuesday, and Tuesday. 20. Mirabegron 25 mg p.o. at bedtime. 21. [place]-3 fatty acids 1000 mg p.o. q.h.s. 22. Tofacitinib 11 mg p.o. daily. 23. Enoxaparin 40 mg subcutaneous daily for 28 days. 24. Polyethylene glycol 17 g p.o. b.i.d. 25. Oxycodone 5-10 mg p.o. q.4 hours p.r.n. ALLERGIES: Listed to cephalexin, ciprofloxacin, codeine, ibuprofen, nitrofurantoin, sulfa, and tramadol. PSYCHOSOCIAL HISTORY: She is . She lives with her . She has a daughter who lives in [place]. She is a nonsmoker. 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 She and her enjoy travel with recent trips to [place] and [place]. FAMILY HISTORY: Noncontributory. REVIEW OF SYSTEMS: She is sleeping well. Her pain is adequately controlled. She denies cough or dyspnea though she had coughed briefly after surgery. Bowels are moving. She has some nerve pain below the left knee. She has some left knee pain, especially after prolonged standing and working with Physical Therapy. The pain in her foot has improved. The swelling in her legs has improved or resolved. She denies any skin rashes. She reports that urinary frequency at night is controlled with the mirabegron. Otherwise, a 10-point review of systems is negative. PHYSICAL EXAM: VITAL SIGNS: Blood pressure is 101/58, heart rate is 80, respiratory rate is 16, oxygen saturation is 95% on room air. Temperature is 37.4 degrees centigrade. Her weight is 73.7 kg for a body mass index of 27. GENERAL: This is an overweight-appearing woman sitting in a chair, dressed in street clothes, cooperative and in no acute distress. HEENT: Extraocular movements are intact. Pupils are equal, round, and reactive to light. Mucous membranes are moist. Dentition is in good condition. She has an uncrowded airway, Mallampati class 2. NECK: Supple. HEART: There is a regular rate and rhythm. There is a 2/6 systolic murmur heard best at the right sternal border. LUNGS: Clear to auscultation bilaterally. ABDOMEN: Soft, nontender, nondistended with normoactive bowel sounds and no hepatosplenomegaly. EXTREMITIES: There is no cyanosis or clubbing. There is trace to 1+ edema on the left lower extremity. NEUROLOGIC: She is alert and oriented x3. She has occasional word-finding difficulties. Cranial nerves 2-12 are grossly intact. There is no focal weakness, and sensation is intact to light touch. CURRENT LEVEL OF FUNCTION PER THE PREADMISSION SCREEN: She was on a regular diet and regular texture. She accomplish grooming with minimal assist standing with a platform front wheeled walker. Toileting was done with moderate assist with transfers with a platform front wheeled walker. Bed mobility required moderate assist with the left lower extremity. Transfers required minimal-to- moderate assist with a platform front wheeled walker. Balance required minimal assist for standing with the walker. Endurance was fair minus. She ambulated 15 feet with minimal assist with a platform front wheeled walker. Communication and cognition were normal. She required cues for sequencing to maintain safety. On today's exam, there are no significant changes from the preadmission screen. IMPRESSION: This is a 72-year-old woman with several chronic illnesses including rheumatoid arthritis, diabetes mellitus, and osteoporosis who suffered a fall on 10/22/2017, and a left femoral fracture. She underwent surgery on 10/22/2017, with intramedullary nailing. She has since been advanced in terms of weightbearing to weightbearing as tolerated on the left lower extremity. She has a wrist fracture from approximately 5 weeks ago which has been casted and has had an ORIF with a plate implanted per Dr. Romero at [facility] and weightbearing status on the left hand is unclear, thus she has been issued a platform walker. Hospital stay was complicated by hypoxia, anemia, and pain control. She uses a walking boot on the left lower extremity due to pain, with history of nonunion 2nd metatarsal fracture and a Lisfranc deformity. She was medically stabilized, participating in therapy, and appropriate for inpatient rehabilitation. Her goal is to complete a rehabilitation stay and then return home with her family. There are no stairs to enter the house. There are stairs to the bedroom, but she can live on 1 level, and she will have assistance from her . For a safe discharge, she will need to progress to modified independence for ADLs, IADLs and functional mobility. She will have therapy with Physical Therapy and Occupational Therapy for 90 minutes per day for each discipline on 5-7 days of the week. Her expected duration of stay is 10 days. It is anticipated that upon discharge, she will continue to benefit from home health services including nursing, occupational therapy, and physical therapy. PLAN: 1. Left femur fracture status post intramedullary nailing, advanced to weightbearing as tolerated, complicated by likely ankle sprain with history of nonunion of 2nd metatarsal fracture and Lisfranc deformity, and question of weightbearing status on the left wrist. PT and OT to optimize mobility and activities of daily living toward the modified independent level for discharge home with her . 2. Pain management. Continue pregabalin for neuropathic pain. Continue oxycodone. Due to her complaint of dry mouth, will change cyclobenzaprine at h.s. to p.r.n. Consider initiating scheduled acetaminophen depending on how she does with her pain control. 3. Osteoporosis. Continue cholecalciferol. She gets every 6 month injections of denosumab. She reports that she had a recent bone density study which showed improvement in her bone density over the prior study. She clearly has continued osteoporosis with her femur fracture, and avoidance of falls is very important for her. 4. Rheumatoid arthritis. Continue prednisone and tofacitinib. 5. History of depression. She does not appear to be depressed at present. Continue to bupropion and escitalopram. 6. Anemia, status post transfusion and stable or improving on labs in the hospital. There is no indication to recheck her labs at present. 7. Hypothyroidism. Continue levothyroxine. 8. Diabetes mellitus. Continue insulin per insulin pump. 9. Hypertension and coronary artery disease. Continue metoprolol, aspirin, and rosuvastatin. 10. Dry mouth, likely due to medications. The likely medications are cyclobenzaprine, Mirabegron, pregabalin, and bupropion. These were discussed with the patient. Will change cyclobenzaprine to p.r.n. I have added Biotene mouthwash on a p.r.n. basis. 11. Constipation. Continue polyethylene glycol. It has been ordered b.i.d. but it was not used for the last several days. Her bowels have been moving regularly. Will continue polyethylene glycol daily on a p.r.n. basis. Will add a bisacodyl suppository in case she becomes constipated. 12. Prophylaxis. Continue enoxaparin 40 mg daily, though she is also on aspirin. There is no history of gastric ulcers; however, she is on prednisone as well. Will initiate a proton pump inhibitor for as long as she needs the enoxaparin due to increased risk for gastric ulcers on that combination of medications. 13. Followup. She is to see orthopedic surgeon Dr. Isabel 2-3 weeks after surgery, which would be in the week of November 07. If she remains in inpatient rehabilitation at that time, will discuss further with Dr. Isabel. /[id number]/MODL MTDD
[2017-10-26] MEDS ORDERED: DOCUSATE SODIUM 100 MG CAP PO SCH (21:00)
[2017-10-26] MEDS ORDERED: CYCLOBENZAPRINE 10 MG TAB PO SCH (21:00)
[2017-10-26] MEDS ORDERED: POLYETHYLENE GLYCOL 3350 17 GM PKT PO SCH (21:00)
[2017-10-26] MEDS: ROSUVASTATIN CALCIUM 10 MG TAB PO SCH (21:44)
[2017-10-26] MEDS: OMEGA-3 FATTY ACIDS 1,000 MG CAP PO SCH (21:45)
[2017-10-26] MEDS: ASPIRIN EC 81 MG TAB PO SCH (21:45)
[2017-10-26] MEDS: CHOLECALCIFEROL VIT D3 1,000 UNITS TAB PO SCH (21:46)
[2017-10-26] MEDS: Mirabegron [Myrbetriq] 25 MG PO SCH (21:46)
[2017-10-26] MEDS: ZOLPIDEM TARTRATE 5 MG TAB PO SCH (21:47)
[2017-10-26] MEDS: ESTRADIOL 42.5 GM CRTUBE VG SCH (21:48)
[2017-10-26] MEDS: METOPROLOL SUCCINATE XR 25 MG TAB PO SCH (21:48)
[2017-10-27] MEDS: LEVOTHYROXINE 88 MCG TAB PO SCH (05:32)
[2017-10-27] MEDS: oxyCODONE IR 5 MG TAB PO PRN ×5 (06:37→20:38)
[2017-10-27] MEDS: ENOXAPARIN 40 MG/0.4 ML SYR SC SCH (08:34)
[2017-10-27] MEDS: CHOLECALCIFEROL VIT D3 1,000 UNITS TAB PO SCH ×2 (08:35→22:02)
[2017-10-27] MEDS: ESCITALOPRAM OXALATE 10 MG TAB PO SCH (08:35)
[2017-10-27] MEDS: FOLIC ACID 1 MG TAB PO SCH (08:35)
[2017-10-27] MEDS: buPROPion XL 150 MG TAB PO SCH (08:35)
[2017-10-27] MEDS: PREGABALIN 75 MG CAP PO SCH ×3 (08:41→22:02)
[2017-10-27] MEDS: predniSONE 1 MG TAB PO SCH (08:41)
[2017-10-27] MEDS ORDERED: Herbals/Supplements -Info Only PO SCH (09:00)
--- NOTE | 2017-10-27 16:14 | SOAPPROG ---
SOAP Progress Note Assessment/Plan: Assessment: Left femur fracture status post intramedullary nailing 10/22/17, advanced to weightbearing as tolerated, complicated by likely ankle sprain with history of nonunion of 2nd metatarsal fracture and Lisfranc deformity, and question of weightbearing status on the left wrist. * PT and OT to optimize mobility and activities of daily living toward the modified independent level for discharge home with her . Pain management. Continue pregabalin for neuropathic pain. Continue oxycodone. Due to her complaint of dry mouth, will change cyclobenzaprine at h.s. to p.r.n. Will start scheduled acetaminophen 10/27/2017 1000 mg three times daily. Osteoporosis. Continue cholecalciferol. She gets every 6 month injections of denosumab. She reports that she had a recent bone density study which showed improvement in her bone density over the prior study. She clearly has continued osteoporosis with her femur fracture, and avoidance of falls is very important for her. Rheumatoid arthritis. Continue prednisone and tofacitinib. History of depression. She does not appear to be depressed at present. Continue to bupropion and escitalopram. Anemia, status post transfusion and stable or improving on labs in the hospital. There is no indication to recheck her labs at present. Hypothyroidism. Continue levothyroxine. Diabetes mellitus. Continue insulin per insulin pump. Hypertension and coronary artery disease. Continue metoprolol, aspirin, and rosuvastatin. Dry mouth, likely due to medications. The likely medications are cyclobenzaprine, Mirabegron, pregabalin, and bupropion. These were discussed with the patient. Will change cyclobenzaprine to p.r.n. * She reports Biotene is helpful. Will increase dosing frequency from four times daily to q.2 hours p.r.n. Constipation. Continue polyethylene glycol. It has been ordered b.i.d. but it was not used for the last several days. Her bowels have been moving regularly. Will continue polyethylene glycol daily on a p.r.n. basis. Will add a bisacodyl suppository in case she becomes constipated. Prophylaxis. Continue enoxaparin 40 mg daily, though she is also on aspirin. There is no history of gastric ulcers; however, she is on prednisone as well. Will initiate a proton pump inhibitor for as long as she needs the enoxaparin due to increased risk for gastric ulcers on that combination of medications. FOLLOW-UP: She is to see orthopedic surgeon Dr. Isabel 2-3 weeks after surgery, which would be in the week of November 07. If she remains in inpatient rehabilitation at that time, will discuss further with Dr. Isabel. She reports she has followup scheduled with orthopedic surgeon Dr. Romero on 11/03/2017 at 2: 30 p.m., at [facility] in [place], regarding her left wrist fracture. 10/27/17 16:23 Subjective: No complaints. Pain is overall adequately controlled. She is concerned about taking too much oxycodone. Bowels are moving. No cough or dyspnea, no fevers or chills. She had pain in the right wrist from using the walker and now has a bilateral platform walker. Objective: Vital Signs Temp Pulse Resp BP Pulse Ox 37.2 C 93 18 132/68 H 96 10/27/17 12:06 10/27/17 12:06 10/27/17 12:06 10/27/17 12:06 10/27/17 12:06 10/26/17 10/27/17 10/28/17 05:59 05:59 05:59 Intake Total 400 Output Total 850 Balance 400 -850 Physical Exam - Physical Exam General Appearance: WD/WN, alert, no apparent distress Respiratory: normal breath sounds, No crackles, No rhonchi, No wheezing Cardiac/Chest: regular rate, rhythm, systolic murmur Skin: normal color, warm/dry Extremities: other (Ulnar deviation of the fingers. Cast on left wrist.) Neuro/Psych: no motor/sensory deficits, alert, normal mood/affect, oriented x 3 ICD10 Worksheet Patient Problems: Problems Problem Status Onset 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
[2017-10-27] MEDS ORDERED: BIOTENE DRY MOUTH ORAL RINSE 237 ML BTL MM PRN (16:27)
--- NOTE | 2017-10-27 18:30 | PDOREHIP ---
Admission [facility] - Admission - 3 Day Assessment Period Admission Date/Day 1: 10/26/17 Day 2: 10/27/17 Day 3: 10/28/17 - Active Diagnoses Comorbidities and Co-existing Conditions at Admission: 11052. DM (e.g. diabetic retinopathy, nephropathy, and neuropathy) - Skin Conditions Unhealed Pressure Ulcer (1 or more/Stage 1 or >)-Admission: 0. No
[2017-10-27] MEDS: OMEGA-3 FATTY ACIDS 1,000 MG CAP PO SCH (22:02)
[2017-10-27] MEDS: METOPROLOL SUCCINATE XR 25 MG TAB PO SCH (22:02)
[2017-10-27] MEDS: POLYETHYLENE GLYCOL 3350 17 GM PKT PO PRN (22:02)
[2017-10-27] MEDS: ZOLPIDEM TARTRATE 5 MG TAB PO SCH (22:02)
[2017-10-27] MEDS: ACETAMINOPHEN 500 MG TAB PO SCH (22:03)
[2017-10-27] MEDS: ASPIRIN EC 81 MG TAB PO SCH (22:03)
[2017-10-27] MEDS: Mirabegron [Myrbetriq] 25 MG PO SCH (22:10)
[2017-10-27] MEDS: ROSUVASTATIN CALCIUM 10 MG TAB PO SCH (22:32)
[2017-10-28] MEDS: oxyCODONE IR 5 MG TAB PO PRN ×3 (06:35→21:40)
[2017-10-28] MEDS: LEVOTHYROXINE 88 MCG TAB PO SCH (06:37)
[2017-10-28] MEDS: ACETAMINOPHEN 500 MG TAB PO SCH ×3 (09:31→21:31)
[2017-10-28] MEDS: CHOLECALCIFEROL VIT D3 1,000 UNITS TAB PO SCH ×2 (09:32→21:32)
[2017-10-28] MEDS: predniSONE 1 MG TAB PO SCH (09:32)
[2017-10-28] MEDS: buPROPion XL 150 MG TAB PO SCH (09:32)
[2017-10-28] MEDS: FOLIC ACID 1 MG TAB PO SCH (09:32)
[2017-10-28] MEDS: ESCITALOPRAM OXALATE 10 MG TAB PO SCH (09:32)
[2017-10-28] MEDS: PREGABALIN 75 MG CAP PO SCH ×3 (09:33→23:10)
[2017-10-28] MEDS: ENOXAPARIN 40 MG/0.4 ML SYR SC SCH (09:34)
--- NOTE | 2017-10-28 16:36 | SOAPPROG ---
SOAP Progress Note Assessment/Plan: Assessment: 72 YO woman withLeft femur fracture status post intramedullary nailing 10/22/17, advanced to weightbearing as tolerated, complicated by likely ankle sprain with history of nonunion of 2nd metatarsal fracture and Lisfranc deformity, and question of weightbearing status on the left wrist. * Initial FIM today 85. Mobility improving, patient very motivated, yet limited by pain (primarily L knee) * Cont PT and OT to optimize mobility and activities of daily living toward the modified independent level for discharge home with her . Cont platform walker. Pain management. Continue pregabalin for neuropathic pain. Continue oxycodone. Due to her complaint of dry mouth, will change cyclobenzaprine at h.s. to p.r.n. Will start scheduled acetaminophen 10/27/2017 1000 mg three times daily. Osteoporosis. Continue cholecalciferol, aand Q 6 month injections of denosumab. Recent bone density study possibly showed improvement in her bone density over the prior study. Rheumatoid arthritis. Continue prednisone and tofacitinib. History of depression. She does not appear to be depressed at present. Continue to bupropion and escitalopram. Anemia, status post transfusion and stable or improving on labs in the hospital. No indication to recheck her labs at present. Hypothyroidism. Continue levothyroxine. Diabetes mellitus. Continue insulin per insulin pump. She is independent in managing the pump. Hypertension and coronary artery disease. Continue metoprolol, aspirin, and rosuvastatin. Dry mouth, likely due to medications. The likely medications are cyclobenzaprine, Mirabegron, pregabalin, and bupropion. These were discussed with the patient. Will change cyclobenzaprine to p.r.n. Cont Biotene as it is helpful. Constipation. Continue polyethylene glycol daily on a p.r.n. basis. PRN bisacodyl suppository in case she becomes constipated. Prophylaxis. Continue enoxaparin 40 mg daily, though she is also on aspirin. There is no history of gastric ulcers; however, she is on prednisone as well. Will initiate a proton pump inhibitor for as long as she needs the enoxaparin due to increased risk for gastric ulcers on that combination of medications. FOLLOW-UP: She is to see orthopedic surgeon Dr. Isabel 2-3 weeks after surgery, which would be in the week of November 07. If she remains in inpatient rehabilitation at that time, will discuss further with Dr. Isabel. She reports she has followup scheduled with orthopedic surgeon Dr. Romero on 11/03/2017 at 2: 30 p.m., at [facility] in [place], regarding her left wrist fracture. 10/28/17 17:20 Subjective: No complaints. Pain is overall adequately controlled. Primary c/o is L , reviewed oxycodone and acetaminophen intake. She is encouraged to try the Flexeril at HS. Bowels are moving. No cough or dyspnea, no fevers or chills. B UE pain better with bilateral platform walker. Objective: Vital Signs Temp Pulse Resp BP Pulse Ox 36.6 C 82 16 94/55 L 91 L 10/28/17 08:00 10/28/17 08:00 10/28/17 08:00 10/28/17 08:00 10/28/17 08:00 10/27/17 10/28/17 10/29/17 05:59 05:59 05:59 Intake Total 400 1880 1200 Output Total 2450 1050 Balance 400 -570 150 Physical Exam - Physical Exam General Appearance: alert, no apparent distress Neck: supple Respiratory: lungs clear Cardiac/Chest: regular rate, rhythm Skin: normal color, warm/dry, other (multiple ecchymosis sites, skin tears) Extremities: pedal edema (L ankle > R), swelling (L knee), other (L toes WNL motor/sensory), No normal range of motion, No non-tender, No normal inspection Neuro/Psych: alert, normal mood/affect, oriented x 3 ICD10 Worksheet Patient Problems: Problems Problem Status Onset 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
[2017-10-28] MEDS: ZOLPIDEM TARTRATE 5 MG TAB PO SCH (21:32)
[2017-10-28] MEDS: METOPROLOL SUCCINATE XR 25 MG TAB PO SCH (21:32)
[2017-10-28] MEDS: OMEGA-3 FATTY ACIDS 1,000 MG CAP PO SCH (21:32)
[2017-10-28] MEDS: ROSUVASTATIN CALCIUM 10 MG TAB PO SCH (21:32)
[2017-10-28] MEDS: ASPIRIN EC 81 MG TAB PO SCH (21:32)
[2017-10-28] MEDS: ESTRADIOL 42.5 GM CRTUBE VG SCH (21:51)
[2017-10-28] MEDS: Mirabegron [Myrbetriq] 25 MG PO SCH (21:52)
[2017-10-28] MEDS: CYCLOBENZAPRINE 10 MG TAB PO PRN (21:54)
[2017-10-29] MEDS: LEVOTHYROXINE 88 MCG TAB PO SCH (05:22)
[2017-10-29] MEDS: oxyCODONE IR 5 MG TAB PO PRN ×4 (07:14→21:26)
[2017-10-29] MEDS: ENOXAPARIN 40 MG/0.4 ML SYR SC SCH (08:08)
[2017-10-29] MEDS: PREGABALIN 75 MG CAP PO SCH ×3 (08:09→21:26)
[2017-10-29] MEDS: FOLIC ACID 1 MG TAB PO SCH (08:10)
[2017-10-29] MEDS: ESCITALOPRAM OXALATE 10 MG TAB PO SCH (08:10)
[2017-10-29] MEDS: buPROPion XL 150 MG TAB PO SCH (08:10)
[2017-10-29] MEDS: ACETAMINOPHEN 500 MG TAB PO SCH ×3 (08:10→21:28)
[2017-10-29] MEDS: predniSONE 1 MG TAB PO SCH (08:10)
[2017-10-29] MEDS: CHOLECALCIFEROL VIT D3 1,000 UNITS TAB PO SCH ×2 (08:13→21:26)
--- NOTE | 2017-10-29 12:13 | SOAPPROG ---
SOAP Progress Note Assessment/Plan: Assessment: 72 YO woman with Left femur fracture S/P intramedullary nailing 10/22/17. Complicated by likely ankle sprain with history of nonunion of 2nd metatarsal fracture and Lisfranc deformity, and question of weightbearing status on the left wrist. * advanced to weightbearing as tolerated * Initial FIM 85 (10/28/17). Mobility improving, patient very motivated, yet limited by pain (primarily L knee) * Cont PT and OT to optimize mobility and activities of daily living toward the modified independent level for discharge home with her . Cont platform walker. Pain management. Continue pregabalin for neuropathic pain. Continue oxycodone. Due to her complaint of dry mouth, will change cyclobenzaprine at h.s. to p.r.n. Will start scheduled acetaminophen 10/27/2017 1000 mg three times daily. Osteoporosis. Continue cholecalciferol, aand Q 6 month injections of denosumab. Recent bone density study possibly showed improvement in her bone density over the prior study. Rheumatoid arthritis. Continue prednisone and tofacitinib. History of depression. She does not appear to be depressed at present. Continue to bupropion and escitalopram. Anemia, status post transfusion and stable or improving on labs in the hospital. No indication to recheck her labs at present. Hypothyroidism. Continue levothyroxine. Diabetes mellitus. Continue insulin per insulin pump. She is independent in managing the pump. Hypertension and coronary artery disease. Continue metoprolol, aspirin, and rosuvastatin. Dry mouth, likely due to medications. The likely medications are cyclobenzaprine, Mirabegron, pregabalin, and bupropion. These were discussed with the patient. Will change cyclobenzaprine to p.r.n. Cont Biotene as it is helpful. Constipation. Continue polyethylene glycol daily on a p.r.n. basis. PRN bisacodyl suppository in case she becomes constipated. Prophylaxis. Continue enoxaparin 40 mg daily, though she is also on aspirin. There is no history of gastric ulcers; however, she is on prednisone as well. Will initiate a proton pump inhibitor for as long as she needs the enoxaparin due to increased risk for gastric ulcers on that combination of medications. FOLLOW-UP: She is to see orthopedic surgeon Dr. Isabel 2-3 weeks after surgery, which would be in the week of November 07. If she remains in inpatient rehabilitation at that time, will discuss further with Dr. Isabel. She reports she has followup scheduled with orthopedic surgeon Dr. Romero on 11/03/2017 at 2: 30 p.m., at [facility] in [place], regarding her left wrist fracture. 10/29/17 12:07 Subjective: In good spirits decreased B LE edema, encouraged by results of keeping feet elevated and exercising calf muscles, with isometrics adequate pain control No F/C/CP/SOB/N/V/D Objective: Vital Signs Temp Pulse Resp BP Pulse Ox 36.8 C 77 18 140/80 H 95 10/29/17 05:23 10/29/17 05:23 10/29/17 05:23 10/29/17 05:23 10/29/17 05:23 10/28/17 10/29/17 10/30/17 05:59 05:59 05:59 Intake Total 1880 1870 Output Total 2450 2950 800 [facility] -570 -1080 -800 Physical Exam - Physical Exam General Appearance: alert, no apparent distress Neck: supple Respiratory: lungs clear Cardiac/Chest: regular rate, rhythm, systolic murmur Abdomen: normal bowel sounds, soft Skin: other (incisions C&D, eccymosis evoloving/resolving) Extremities: pedal edema (2+ on left, trace on right), swelling (t/o LLE) Neuro/Psych: alert, normal mood/affect, oriented x 3, other (no acute changes) ICD10 Worksheet Patient Problems: Problems Problem Status Onset 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
--- NOTE | 2017-10-29 19:53 | GDS ---
[f rep st] DISCHARGE SUMMARY DISCHARGE DIAGNOSES: 1. Left femur fracture status post intramedullary nailing. 2. Hypotension. 3. Anemia. CONSULTATIONS: Dr. Allen Isabel. HOSPITAL COURSE: The patient is a 72-year-old woman with a history of rheumatoid arthritis and osteo porosis who was admitted after a fall on 10/22/2017, resulting in a left subtrochanteric fracture. S he underwent surgical repair with Dr. Isabel. Her postop course was complicated by hypotension and acu te blood loss anemia. She was given fluids and transfused 3 units PRBCs with good response and stabi lization of hemoglobin/hematocrit and blood pressure. She was subsequently accepted for inpatient re hab and was transferred in stable condition. MEDICATIONS ON DISCHARGE: Wellbutrin 300 mg daily, folic acid 1 mg daily, insulin pump, levothyroxin e 88 mcg daily, metoprolol succinate extended release 25 mg daily, Crestor 10 mg daily, Ambien 5 mg a t bedtime, prednisone 4 mg daily, aspirin 81 mg daily, Flexeril 10 mg at h.s., Prolia 60 mg subcu ev tess 6 months, Lexapro 10 mg daily, fluocinolone 0.01% b.i.d. p.r.n., methotrexate 7.5 mg p.o. once we ekly, Lyrica 75 mg b.i.d., vitamin D 1000 units b.i.d., Colace 100 mg at bedtime, Estrace cream, Myrb etriq 25 mg at bedtime, fish oil, Xeljanz 11 mg daily, Lovenox 40 mg subcu daily, MiraLAX 17 g p.r.n. , oxycodone 5-10 mg p.o. q.4 hours p.r.n. /[id number]/MODL
[2017-10-29] MEDS: OMEGA-3 FATTY ACIDS 1,000 MG CAP PO SCH (21:26)
[2017-10-29] MEDS: ROSUVASTATIN CALCIUM 10 MG TAB PO SCH (21:26)
[2017-10-29] MEDS: METOPROLOL SUCCINATE XR 25 MG TAB PO SCH (21:27)
[2017-10-29] MEDS: CYCLOBENZAPRINE 10 MG TAB PO PRN (21:27)
[2017-10-29] MEDS: ASPIRIN EC 81 MG TAB PO SCH (21:28)
[2017-10-29] MEDS: ZOLPIDEM TARTRATE 5 MG TAB PO SCH (21:28)
[2017-10-29] MEDS: Mirabegron [Myrbetriq] 25 MG PO SCH (21:29)
[2017-10-30] MEDS: oxyCODONE IR 5 MG TAB PO PRN ×3 (06:23→21:42)
[2017-10-30] MEDS: LEVOTHYROXINE 88 MCG TAB PO SCH (06:23)
[2017-10-30] MEDS: PREGABALIN 75 MG CAP PO SCH ×3 (08:21→21:42)
[2017-10-30] MEDS: predniSONE 1 MG TAB PO SCH (08:21)
[2017-10-30] MEDS: ACETAMINOPHEN 500 MG TAB PO SCH ×3 (08:21→21:41)
[2017-10-30] MEDS: FOLIC ACID 1 MG TAB PO SCH (08:22)
[2017-10-30] MEDS: CHOLECALCIFEROL VIT D3 1,000 UNITS TAB PO SCH ×2 (08:22→21:43)
[2017-10-30] MEDS: buPROPion XL 150 MG TAB PO SCH (08:22)
[2017-10-30] MEDS: ENOXAPARIN 40 MG/0.4 ML SYR SC SCH (08:22)
[2017-10-30] MEDS: ESCITALOPRAM OXALATE 10 MG TAB PO SCH (08:22)
--- NOTE | 2017-10-30 14:32 | SOAPPROG ---
SOAP Progress Note Assessment/Plan: Assessment: 72 YO woman with Left femur fracture S/P intramedullary nailing 10/22/17. 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 * cont weightbearing as tolerated * Initial FIM 85 (10/28/17). Mobility improving, patient very motivated, yet limited by pain (primarily L knee) which is starting to subside. * Cont PT and OT to optimize mobility and activities of daily living toward the modified independent level for discharge home with her . Cont platform walker. DME: Patient recommended Bilateral platform walker. Because she has * Mobility limitation that significantly impairs one or more mobility-related ADL's in home * She is able to use platform walker safely * Functional mobility deficit cannot be resolved with a cane * Patient will require Bilateral platforms for front wheeled walker 2/2 to the following orhopedic restrictions * R upper extremity RA * L upper extremity NON-weightbearing at the the wrist Pain management. Continue pregabalin for neuropathic pain. Continue oxycodone. Continue cyclobenzaprine at h.s. Continue scheduled acetaminophen 1000 mg TID Osteoporosis. Continue cholecalciferol, and Q 6 month injections of denosumab. Recent bone density study possibly showed improvement in her bone density over the prior study. Rheumatoid arthritis. Continue prednisone and tofacitinib. Depression, by hx. She does not appear to be depressed at present. Continue bupropion and escitalopram. Anemia, s/p transfusion and stable or improving H/H. No indication to recheck her labs at present. Hypothyroidism. Continue levothyroxine. Diabetes mellitus. Continue insulin per insulin pump. She is independent in managing the pump. Hypertension and coronary artery disease. Continue metoprolol, aspirin, and rosuvastatin. Dry mouth, likely due to medications. The likely medications are cyclobenzaprine, Mirabegron, pregabalin, and bupropion. These were discussed with the patient. Will change cyclobenzaprine to p.r.n. Cont Biotene as it is helpful. Constipation. Continue polyethylene glycol daily on a p.r.n. basis. PRN bisacodyl suppository in case she becomes constipated. Prophylaxis. Continue enoxaparin 40 mg daily, though she is also on aspirin. There is no history of gastric ulcers; however, she is on prednisone as well. Will initiate a proton pump inhibitor for as long as she needs the enoxaparin due to increased risk for gastric ulcers on that combination of medications. FOLLOW-UP: She is to see orthopedic surgeon Dr. Isabel 2-3 weeks after surgery, which would be in the week of November 07. If she remains in inpatient rehabilitation at that time, will discuss further with Dr. Isabel. She reports she has followup scheduled with orthopedic surgeon Dr. Romero on 11/03/2017 at 2: 30 p.m., at [facility] in [place], regarding her left wrist fracture. 10/30/17 14:23 Subjective: In good spirits Pain more manageable not asking for pain meds early No F/C/CPSOB/N/V/D/C Objective: Vital Signs Temp Pulse Resp BP Pulse Ox 37.1 C 72 18 115/71 93 10/30/17 06:33 10/30/17 06:33 10/30/17 06:33 10/30/17 06:33 10/29/17 18:06 10/29/17 10/30/17 10/31/17 05:59 05:59 05:59 Intake Total 1870 1120 775 Output Total 2950 2400 1000 Balance -1080 -1280 -225 Physical Exam - Physical Exam General Appearance: alert, no apparent distress Neck: supple Respiratory: lungs clear Cardiac/Chest: regular rate, rhythm Skin: normal color, warm/dry Extremities: pedal edema, swelling (L knee, thigh), other (no acute changes), No normal range of motion, No non-tender, No calf tenderness Neuro/Psych: alert, normal mood/affect, oriented x 3 ICD10 Worksheet Patient Problems: Problems Problem Status Onset 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
[2017-10-30] MEDS ORDERED: METHOTREXATE 2.5 MG TAB PO SCH (15:27)
[2017-10-30] MEDS: ASPIRIN EC 81 MG TAB PO SCH (21:43)
[2017-10-30] MEDS: Mirabegron [Myrbetriq] 25 MG PO SCH (21:43)
[2017-10-30] MEDS: ROSUVASTATIN CALCIUM 10 MG TAB PO SCH (21:43)
[2017-10-30] MEDS: POLYETHYLENE GLYCOL 3350 17 GM PKT PO PRN (21:43)
[2017-10-30] MEDS: METOPROLOL SUCCINATE XR 25 MG TAB PO SCH (21:43)
[2017-10-30] MEDS: CYCLOBENZAPRINE 10 MG TAB PO PRN (21:43)
[2017-10-30] MEDS: OMEGA-3 FATTY ACIDS 1,000 MG CAP PO SCH (21:44)
[2017-10-30] MEDS: ZOLPIDEM TARTRATE 5 MG TAB PO SCH (21:59)
[2017-10-31] MEDS: LEVOTHYROXINE 88 MCG TAB PO SCH (05:23)
[2017-10-31] MEDS: oxyCODONE IR 5 MG TAB PO PRN ×2 (05:24→09:54)
[2017-10-31] MEDS: ENOXAPARIN 40 MG/0.4 ML SYR SC SCH (08:57)
[2017-10-31] MEDS: CHOLECALCIFEROL VIT D3 1,000 UNITS TAB PO SCH ×2 (08:57→22:03)
[2017-10-31] MEDS: CYCLOBENZAPRINE 10 MG TAB PO PRN ×2 (08:57→22:03)
[2017-10-31] MEDS: ESCITALOPRAM OXALATE 10 MG TAB PO SCH (08:58)
[2017-10-31] MEDS: PREGABALIN 75 MG CAP PO SCH ×3 (08:58→22:00)
[2017-10-31] MEDS: buPROPion XL 150 MG TAB PO SCH (08:58)
[2017-10-31] MEDS: ACETAMINOPHEN 500 MG TAB PO SCH (08:58)
[2017-10-31] MEDS: FOLIC ACID 1 MG TAB PO SCH (08:58)
[2017-10-31] MEDS ORDERED: ACETAMINOPHEN 325 MG TAB PO PRN (09:56)
--- NOTE | 2017-10-31 10:49 | SOAPPROG ---
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 * Initial FIM today 85. Mobility improving, patient very motivated, yet limited by pain (primarily L knee). * Has been advanced to weight-bearing as tolerated on the left wrist. * Cont PT and OT to optimize mobility and activities of daily living toward the modified independent level for discharge home with her . Cont platform walker. Pain management. Continue pregabalin for neuropathic pain. * Per her request, discontinued scheduled acetaminophen and ordered Percocet 1- 2 q.4 hours p.r.n. as well as acetaminophen 650 mg p.o. Q.4 hours p.r.n.. Osteoporosis. Continue cholecalciferol. She gets every 6 month injections of denosumab. She reports that she had a recent bone density study which showed improvement in her bone density over the prior study. She clearly has continued osteoporosis with her femur fracture, and avoidance of falls is very important for her. Rheumatoid arthritis. Continue prednisone and tofacitinib. History of depression. She does not appear to be depressed at present. Continue to bupropion and escitalopram. Anemia, status post transfusion and stable or improving on labs in the hospital. There is no indication to recheck her labs at present. Hypothyroidism. Continue levothyroxine. Diabetes mellitus. Continue insulin per insulin pump. Hypertension and coronary artery disease. Continue metoprolol, aspirin, and rosuvastatin. Dry mouth, likely due to medications. The likely medications are cyclobenzaprine, Mirabegron, pregabalin, and bupropion. These were discussed with the patient. Will change cyclobenzaprine to p.r.n. * She reports Biotene is helpful. Will increase dosing frequency from four times daily to q.2 hours p.r.n. Constipation. Continue polyethylene glycol. It has been ordered b.i.d. but it was not used for the last several days. Her bowels have been moving regularly. Will continue polyethylene glycol daily on a p.r.n. basis. Will add a bisacodyl suppository in case she becomes constipated. Prophylaxis. Continue enoxaparin 40 mg daily, though she is also on aspirin. There is no history of gastric ulcers; however, she is on prednisone as well. Will initiate a proton pump inhibitor for as long as she needs the enoxaparin due to increased risk for gastric ulcers on that combination of medications. DISPOSITION: Plans to discharge home with her on 11/02/2017. FOLLOW-UP: She is to see orthopedic surgeon Dr. Isabel 2-3 weeks after surgery, which would be in the week of November 07. If she remains in inpatient rehabilitation at that time, will discuss further with Dr. Isabel. She reports she has followup scheduled with orthopedic surgeon Dr. Romero on 11/03/2017 at 2: 30 p.m., at [facility] in [place], regarding her left wrist fracture. 10/31/17 10:44 Subjective: No complaints. Pain is adequately controlled. Bowels are moving. She would like to try using Percocet rather than separate acetaminophen and oxycodone. 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
[2017-10-31] MEDS: predniSONE 1 MG TAB PO SCH (16:49)
[2017-10-31] MEDS: OXYCODONE/APAP 5/325 TAB PO PRN ×2 (17:01→22:01)
[2017-10-31] MEDS: ROSUVASTATIN CALCIUM 10 MG TAB PO SCH (22:00)
[2017-10-31] MEDS: ASPIRIN EC 81 MG TAB PO SCH (22:01)
[2017-10-31] MEDS: ZOLPIDEM TARTRATE 5 MG TAB PO SCH (22:02)
[2017-10-31] MEDS: METOPROLOL SUCCINATE XR 25 MG TAB PO SCH (22:02)
[2017-10-31] MEDS: OMEGA-3 FATTY ACIDS 1,000 MG CAP PO SCH (22:02)
[2017-10-31] MEDS: Mirabegron [Myrbetriq] 25 MG PO SCH (22:03)
[2017-10-31] MEDS: ESTRADIOL 42.5 GM CRTUBE VG SCH (22:04)
[2017-11-01] MEDS: OXYCODONE/APAP 5/325 TAB PO PRN ×4 (06:07→20:36)
[2017-11-01] MEDS: LEVOTHYROXINE 88 MCG TAB PO SCH (06:07)
[2017-11-01] MEDS: ESCITALOPRAM OXALATE 10 MG TAB PO SCH (08:04)
[2017-11-01] MEDS: PREGABALIN 75 MG CAP PO SCH ×3 (08:04→20:34)
[2017-11-01] MEDS: buPROPion XL 150 MG TAB PO SCH (08:04)
[2017-11-01] MEDS: CHOLECALCIFEROL VIT D3 1,000 UNITS TAB PO SCH ×2 (08:04→20:34)
[2017-11-01] MEDS: FOLIC ACID 1 MG TAB PO SCH (08:04)
[2017-11-01] MEDS: predniSONE 1 MG TAB PO SCH (08:04)
[2017-11-01] MEDS: ENOXAPARIN 40 MG/0.4 ML SYR SC SCH (10:09)
--- NOTE | 2017-11-01 14:53 | SOAPPROG ---
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 * Initial FIM 85 on 10/28/2017. Mobility improving, patient very motivated, yet limited by pain (primarily L knee). * Has been advanced to weight-bearing as tolerated on the left wrist. * Cont PT and OT to optimize mobility and activities of daily living toward the modified independent level for discharge home with her . Cont platform walker. Pain management. Continue pregabalin for neuropathic pain. * Per her request, on 10/31/2017, discontinued scheduled acetaminophen and ordered Percocet 1-2 q.4 hours p.r.n. as well as acetaminophen 650 mg p.o. Q.4 hours p.r.n.. Osteoporosis. Continue cholecalciferol. She gets every 6 month injections of denosumab. She reports that she had a recent bone density study which showed improvement in her bone density over the prior study. She clearly has continued osteoporosis with her femur fracture, and avoidance of falls is very important for her. Rheumatoid arthritis. Continue prednisone and tofacitinib. History of depression. She does not appear to be depressed at present. Continue to bupropion and escitalopram. Anemia, status post transfusion and stable or improving on labs in the hospital. There is no indication to recheck her labs at present. Hypothyroidism. Continue levothyroxine. Diabetes mellitus. Continue insulin per insulin pump. Hypertension and coronary artery disease. Continue metoprolol, aspirin, and rosuvastatin. Dry mouth, likely due to medications. The likely medications are cyclobenzaprine, Mirabegron, pregabalin, and bupropion. These were discussed with the patient. Will change cyclobenzaprine to p.r.n. * She reports Biotene is helpful. Will increase dosing frequency from four times daily to q.2 hours p.r.n. Constipation. Continue polyethylene glycol. It has been ordered b.i.d. but it was not used for the last several days. Her bowels have been moving regularly. Will continue polyethylene glycol daily on a p.r.n. basis. Will add a bisacodyl suppository in case she becomes constipated. Prophylaxis. Continue enoxaparin 40 mg daily, though she is also on aspirin. There is no history of gastric ulcers; however, she is on prednisone as well. Will initiate a proton pump inhibitor for as long as she needs the enoxaparin due to increased risk for gastric ulcers on that combination of medications. Duration of anticoagulation should be 4 weeks, through 11/18/2017. DISPOSITION: Plans to discharge home with her on 11/02/2017. FOLLOW-UP: She is to see orthopedic surgeon Dr. Isabel 2-3 weeks after surgery, which would be in the week of November 07. If she remains in inpatient rehabilitation at that time, will discuss further with Dr. Isabel. She reports she has followup scheduled with orthopedic surgeon Dr. Romero on 11/03/2017 at 2: 30 p.m., at [facility] in [place], regarding her left wrist fracture. Primary care provider is Cady Johnson. 10/31/17 10:44 11/01/17 14:50 Subjective: No complaints. Has just taken to Percocet and is planning on taking a nap. Pain is adequately controlled. Sleeping well. Bowels moving. Objective: Vital Signs Temp Pulse Resp BP Pulse Ox 36.5 C 78 16 105/65 93 11/01/17 08:00 11/01/17 08:00 11/01/17 08:00 11/01/17 08:00 11/01/17 08:00 10/31/17 11/01/17 11/02/17 05:59 05:59 05:59 Intake Total 2575 1270 200 Output Total 2400 1050 Balance 175 220 200 Physical Exam - Physical Exam General Appearance: WD/WN, alert, no apparent distress Respiratory: No respiratory distress, No accessory muscle use Skin: normal color, warm/dry Extremities: No pedal edema, No swelling Neuro/Psych: no motor/sensory deficits, alert, normal mood/affect, oriented x 3 ICD10 Worksheet Patient Problems: Problems Problem Status Onset 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
[2017-11-01] MEDS: CYCLOBENZAPRINE 10 MG TAB PO PRN (20:34)
[2017-11-01] MEDS: ROSUVASTATIN CALCIUM 10 MG TAB PO SCH (20:34)
[2017-11-01] MEDS: OMEGA-3 FATTY ACIDS 1,000 MG CAP PO SCH (20:34)
[2017-11-01] MEDS: ASPIRIN EC 81 MG TAB PO SCH (20:35)
[2017-11-01] MEDS: METOPROLOL SUCCINATE XR 25 MG TAB PO SCH (20:37)
[2017-11-01] MEDS: Mirabegron [Myrbetriq] 25 MG PO SCH (20:38)
[2017-11-01] MEDS: oxyCODONE IR 5 MG TAB PO PRN (21:19)
[2017-11-01] MEDS: ZOLPIDEM TARTRATE 5 MG TAB PO SCH (21:27)
[2017-11-02] MEDS: LEVOTHYROXINE 88 MCG TAB PO SCH (05:58)
[2017-11-02] MEDS: predniSONE 1 MG TAB PO SCH (08:12)
[2017-11-02] MEDS: FOLIC ACID 1 MG TAB PO SCH (08:12)
[2017-11-02] MEDS: CHOLECALCIFEROL VIT D3 1,000 UNITS TAB PO SCH (08:12)
[2017-11-02] MEDS: ENOXAPARIN 40 MG/0.4 ML SYR SC SCH (08:12)
[2017-11-02] MEDS: buPROPion XL 150 MG TAB PO SCH (08:12)
[2017-11-02] MEDS: ESCITALOPRAM OXALATE 10 MG TAB PO SCH (08:12)
[2017-11-02] MEDS: OXYCODONE/APAP 5/325 TAB PO PRN ×2 (08:16→12:14)
[2017-11-02] MEDS: PREGABALIN 75 MG CAP PO SCH (08:16)
[2017-11-02 08:19] VITALS: BP 150/74
--- NOTE | 2017-11-02 16:32 | GDS ---
[f rep st] DISCHARGE SUMMARY ADMISSION DIAGNOSIS: Debility, status post fall and left femur fracture. DISCHARGE DIAGNOSIS: Debility, status post fall and left femur fracture. OTHER DISCHARGE DIAGNOSES: 1. Pain management. 2. Anemia. 3. Diabetes mellitus, type 2. 4. Dry mouth. COMPLICATIONS: There were none. PROCEDURES: There were none. CONSULTATIONS: She was seen in consultation by the Orthopedic Surgery service regarding her prior wrist fracture and was advanced to weightbearing as tolerated on the left wrist. HISTORY AND HOSPITAL COURSE: This patient was admitted to [facility] inpatient rehabilitation from [facility] where she had been treated for a left femur fracture with intramedullary nailing. She had suffered a fall on 10/22/2017. She had a previous fall 5 weeks earlier with a left wrist fracture for which she had been nonweightbearing after ORIF. She required blood transfusion in the hospital, had hypotension, which responded to IV fluids, and had hypoxia needing 1.5 L of oxygen overnight. Otherwise, she was medically stabilized and ready for inpatient rehabilitation. She did well in rehabilitation. Her initial functional independence measure was 85 on 10/28/2017, which is consistent with assisted living level of care. Her mobility continued to improve and she was advanced to weightbearing as tolerated on the left wrist. She used a bilateral platform walker due to hand changes resulting from rheumatoid arthritis. Regarding pain management, she was on pregabalin for neuropathic pain. She was on scheduled acetaminophen, and p.r.n. oxycodone. Per her request, this was changed to Percocet 1 to 2 tablets q.4 hours p.r.n., and she reported improved pain control. Anemia was stable and was improving on labs while she was in the hospital. CBC was not checked. She complained of dry mouth. Medications that may have contributed were cyclobenzaprine, mirabegron, pregabalin, oxycodone and bupropion. Cyclobenzaprine was changed to p.r.n. and she was treated with Biotene with improvement. DISCHARGE PLAN: 1. Discharge condition is good. 2. Activity is ad martin with weightbearing as tolerated. 3. Diet is regular. MEDICATIONS ON DISCHARGE: 1. Acetaminophen 650 mg p.o. q.4 hours p.r.n. 2. Aspirin 81 mg p.o. at bedtime. 3. Bupropion 300 mg ER daily. 4. Cholecalciferol 1000 units p.o. b.i.d. 5. Cyclobenzaprine 10 mg p.o. q.h.s. p.r.n. 6. Denosumab 60 mg subcutaneous q.6 months. 7. Enoxaparin 40 mg subcutaneous daily for 16 more days. 8. Escitalopram 10 mg p.o. daily. 9. Estradiol vaginal preparation Tuesday, Tuesday, and Tuesday. 10. Fluocinolone topical p.r.n. rash. 11. Folic acid 1 mg p.o. daily. 12. Glucagon emergency kit p.r.n. hypoglycemia. 13. Insulin pump. 14. Levothyroxine 88 mcg p.o. daily. 15. Methotrexate 7.5 mg p.o. q.Tuesday. 16. Metoprolol XR 25 mg p.o. at bedtime. 17. Mirabegron 25 mg p.o. q.h.s. 18. [place]-3 fatty acids 1000 mg p.o. q.h.s. 19. Oxycodone/acetaminophen 1-2 tablets p.o. q.4 hours p.r.n. 20. Polyethylene glycol 17 g p.o. b.i.d. daily. 21. Prednisone 4 mg p.o. daily. 22. Pregabalin 75 mg p.o. t.i.d. 23. Rosuvastatin 10 mg p.o. q.h.s. 24. Biotene 15 cc p.o. p.r.n. 25. Tofacitinib 11 mg p.o. daily. 26. Zolpidem 5 mg p.o. q.h.s. ISSUES TO BE ADDRESSED FOLLOW UP: Primarily mobility and activities of daily living. She will continue PT and OT, and can follow up with her primary care provider. Regarding her wrist and femur fracture, she will follow up with Dr. Romero about the wrist and Dr. Isabel about the femur Greater than 30 minutes were spent on this discharge summary, including medication reconciliation, coordination of care, and counseling patient. /[id number]/MODL MTDD
== END 2017-11-02 14:33 | disposition home or self-care (01) | DRG 561 ==
LOC: BREH 14:51
PROVIDERS: ADMIT Internal Medicine; ATTEND Internal Medicine
PROC: F08Z2FZ Grooming/Personal Hygiene Treatment using Assistive, Adaptive, Supportive or Protective Equipment (ICD-10-PCS; principal; 2017-10-26)
PROC: F07Z9FZ Gait Training/Functional Ambulation Treatment using Assistive, Adaptive, Supportive or Protective Equipment (ICD-10-PCS; principal; 2017-10-26)
PROC: F07Z8FZ Transfer Training Treatment using Assistive, Adaptive, Supportive or Protective Equipment (ICD-10-PCS; principal; 2017-10-26)
PROC: F07Z5FZ Bed Mobility Treatment using Assistive, Adaptive, Supportive or Protective Equipment (ICD-10-PCS; principal; 2017-10-26)
DX: M80.052D Age-related osteoporosis with current pathological fracture, left femur, subsequent encounter for fracture with routine healing (principal); M80.032D Age-related osteoporosis with current pathological fracture, left forearm, subsequent encounter for fracture with routine healing; M80.072 Age-related osteoporosis with current pathological fracture, left ankle and foot; M06.9 Rheumatoid arthritis, unspecified; E03.9 Hypothyroidism, unspecified; Z79.52 Long term (current) use of systemic steroids; Z91.81 History of falling; R29.6 Repeated falls; D64.9 Anemia, unspecified; E11.9 Type 2 diabetes mellitus without complications; F32.9 Major depressive disorder, single episode, unspecified; I10 Essential (primary) hypertension; I25.10 Atherosclerotic heart disease of native coronary artery without angina pectoris; E78.5 Hyperlipidemia, unspecified; M32.9 Systemic lupus erythematosus, unspecified; K59.00 Constipation, unspecified; R68.2 Dry mouth, unspecified
CPT/HCPCS: 97110-GO; 97110-GP; 97116-GP; 97162-GP; 97166-GO; 97530-GO; 97530-GP; 97535-GO; J1650; J7512

== ENCOUNTER → 2017-12-15 | Outpatient (CLI) | payer OTHER, MEDICARE | LOC: BHFA 14:00 | PROVIDERS: ATTEND Internal Medicine Cardiovascular Disease | DX: I35.0 Nonrheumatic aortic (valve) stenosis (principal) ==

== ENCOUNTER → 2018-01-03 | Outpatient (CLI) | payer OTHER, MEDICARE | LOC: BHFA 10:45 | PROVIDERS: ATTEND Physician Assistant Medical | DX: I35.0 Nonrheumatic aortic (valve) stenosis (principal); I25.10 Atherosclerotic heart disease of native coronary artery without angina pectoris; I10 Essential (primary) hypertension; E78.5 Hyperlipidemia, unspecified; E10.9 Type 1 diabetes mellitus without complications; Z95.5 Presence of coronary angioplasty implant and graft ==

== ENCOUNTER 2018-06-19 11:23 | Emergency (ER) | payer OTHER, MEDICARE ==
--- NOTE | 2018-06-19 11:33 | EDPHY ---
H & P Time Seen by Provider: 06/19/18 11:32 - Personal History Tetanus Vaccine Date: 2014 - Medical/Surgical History Hx Asthma: No Hx Chronic Respiratory Disease: No Hx Diabetes: Yes Hx Cardiac Disease: Yes Hx Renal Disease: No Hx Cirrhosis: No Hx Alcoholism: No Hx HIV/AIDS: No Hx Splenectomy or Spleen Trauma: No Other PMH: medical Htn, diabetes, arthritis(RA), Lupus,CAD. surgery back surgery x 6, right wrist repair, tonsillectomy, cardiac stents x2 , MAC DEGEN, OSTEOPOROSIS,HYPOTHYROID,neck surgery, l arm fx - Social History Smoking Status: Former smoker Constitutional: Initial Vital Signs Temperature (C) 36.5 C 06/19/18 11:30 Heart Rate 74 06/19/18 11:30 Respiratory Rate 16 06/19/18 11:30 Blood Pressure 157/89 H 06/19/18 11:30 O2 Sat (%) 95 06/19/18 11:30 O2 Delivery Mode Nasal Cannula O2 (L/minute) 2 Allergies/Adverse Reactions: cephalexin Allergy (Unknown, Verified 06/19/18 11:53) ibuprofen Allergy (Unknown, Verified 06/19/18 11:53) nitrofurantoin Allergy (Unknown, Verified 06/19/18 11:53) ciprofloxacin HCl [From Cipro] Allergy (Verified 06/19/18 11:53) codeine Allergy (Verified 06/19/18 11:53) Sulfa (Sulfonamide Antibiotics) Allergy (Verified 06/19/18 11:53) tramadol Allergy (Verified 06/19/18 11:53) ciprofloxacin HCl Allergy (Unknown, Uncoded 11/01/17 13:35) Home Medications: Medication Instructions Recorded Folic Acid [Folic Acid 1 MG (*)] 1 mg PO DAILY 11/09/12 Insulin Pump, Patient Own 1 ea MISC AD 11/09/12 Aspirin EC [Aspirin EC 81 mg (*)] 81 mg PO HS 06/05/16 Denosumab [Prolia] 60 mg SQ [id number] 06/05/16 Fluocinolone 0.01% [Synalar 0.01%] 1 manju TP BID PRN 06/05/16 Cholecalciferol Vit D3 [Vitamin D3 1,000 units PO BID 10/22/17 (*)] Herbals/Supplements -Info Only 1 ea PO DAILY 10/22/17 [place]-3 Fatty Acids [Fish Oil 1000 1,000 mg PO HS 10/22/17 mg (*)] Polyethylene Glycol 3350 [Miralax 17 gm PO BID pkt 10/26/17 17 gm (*)] Acetaminophen [Tylenol 325mg (*)] 650 mg PO Q4HRS PRN tab 11/01/17 Bupropion HCl [Wellbutrin Xl] 300 mg PO DAILY #30 tab.er.24h 11/01/17 Cyclobenzaprine [Flexeril 10 MG 10 mg PO HS #30 tab 11/01/17 (*)] Enoxaparin [Lovenox 40 MG (*)] 40 mg SC DAILY 28 Days #16 syr 11/01/17 Escitalopram Oxalate [Lexapro 10 10 mg PO DAILY #30 tab 11/01/17 MG] Estradiol [Estrace Vaginal (*)] 1 manju VG MWF@21 #12 crtube 11/01/17 Glucagon,Human Recombinant 1 mg IJ PRN PRN #1 kit 11/01/17 [Glucagon Emergency Kit] Levothyroxine [Synthroid 88 mcg 88 mcg PO DAILY@07 #30 tab 11/01/17 (*)] Methotrexate Sodium [Rheumatrex] 7.5 mg PO LYONS #12 tab 11/01/17 Metoprolol Succinate Xr [Toprol Xl 25 mg PO HS #30 tab 11/01/17 25 mg (*)] Mirabegron [Myrbetriq] 25 mg PO HS #30 tab.er.24h 11/01/17 Pregabalin [Lyrica 75mg (*)] 75 mg PO TID #90 cap 11/01/17 Rosuvastatin Calcium [Crestor] 10 mg PO HS #30 tablet 11/01/17 Saliva Substitute Combo No.9 15 ml MM Q2 PRN bottle 11/01/17 [Biotene (*)] Tofacitinib Citrate [Xeljanz Xr] 11 mg PO DAILY #30 tab.er.24h 11/01/17 Zolpidem Tartrate [Ambien 5MG (*)] 5 mg PO HS #30 tab 11/01/17 oxyCODONE/APAP 5/325 [Percocet 1 - 2 tab PO Q4HRS PRN #60 tab 11/01/17 5/325 (*)] predniSONE 4 mg PO DAILY #30 tab 11/01/17 Meclizine HCl [Meclizine HCl 25 mg 25 mg PO QID PRN #14 tab 06/19/18 (RX,OTC)] Medical Decision Making - Diagnostics Imaging Results: Imaging Impressions Chest X-Ray 06/19/18 11:57 Impression: 1. No active cardiopulmonary disease seen. 2. Stable moderate elevation right hemidiaphragm with adjacent compressive atelectatic change. Imaging: I viewed and interpreted images myself ED Course/Re-evaluation: CHIEF COMPLAINT: Dizziness HISTORY OF PRESENT ILLNESS: The patient is a 72 y/o female with a history of CAD, cardiac stents x 2, and diabetes arriving via EMS complaining dizziness today. The patient flew home from [place] last night. When she woke up this morning she had a low BGL of 56 and was unable to stand as "everything was spinning". She tried drinking juice to increase her BGL, but subsequently vomited. She then took Dramamine and vomited two more times. She did turn off her insulin pump due to the low BGL. She has had episodes of low BGL in the past, but it has never been accompanied by dizziness. Just prior to calling EMS her BGL was 123. While en route to the emergency department, her BGL was 115 so she was not given D50. Currently she is still feeling dizzy. No fever, headache, body aches, chest pain, heart palpitations, shortness of breath, cough, abdominal pain, urinary or bowel complaints, numbness, paresthesias. REVIEW OF SYSTEMS: A comprehensive 10 system review of systems is otherwise negative aside from elements mentioned in the history of present illness and medical decision making. PHYSICAL EXAM: HR, BP, O2 Sat, RR. Temp noted General Appearance: Appears lethargic, alert, well hydrated, appropriate, and non-toxic appearing. Head: Atraumatic without scalp tenderness or obvious injury Eyes: Pupils equal, round, reactive to light and accommodation, EOMI, no trauma , no injection. Ears: Clear bilaterally, no perforation, normal landmarks Nose: Atraumatic, no rhinorrhea, clear. Throat: There is no erythema or exudates, no lesions, normal tonsils, mucus membranes moist. Neck: Supple, 2+ carotid upstroke, nontender, no lymphadenopathy. Respiratory: No retractions, no distress, no wheezes, and no accessory muscle use. Lungs are clear to auscultation bilaterally. Cardiovascular: Regular rate and rhythm, no murmurs, rubs, or gallops. Bilateral carotid, radial, dorsalis pedis, and posterior tibial pulses intact. Good capillary refill all extremities. Gastrointestinal: Abdomen is soft, nontender, non-distended, no masses, no rebound, no guarding, no peritoneal signs. Musculoskeletal: Normal active ROM of all extremities, atraumatic. Neurological: Alert, appropriate, and interactive. The patient has normal DTRs and non-focal cranial nerves, motor, sensory, and cerebellar exam. Skin: No rashes, good turgor, no nodules on palpation. Past medical history: Hypertension, diabetes, rheumatoid arthritis, Lupus, CAD, vertigo (20 years ago), osteoporosis, macular degeneration, hypothyroid Past surgical history: Spinal surgery, cardiac stents x 2, Family history: Denies Social history: , retired, lives in [place] DIAGNOSTICS/PROCEDURES/CRITICAL CARE TIME: EKG: The 12 lead EKG was interpreted by myself as ectopic atrial rhythm with a rate of 79, short NV interval, left atrial enlargement, and left axis deviation. See hard copy and/or "tracemaster" electronic copy for interpretation. Chest x-ray: No active cardiopulmonary disease seen. Stable moderate elevation right hemidiaphragm with adjacent compressive atelectatic change. DIFFERENTIAL DIAGNOSIS: The differential diagnosis for the patient's dizziness included but was not limited to peripheral and central causes of vertigo, orthostatic causes including dehydration, cardiogenic and neurogenic causes, and blood loss. MEDICAL DECISION MAKING: The patient is a 72 y/o female with a history of CAD, cardiac stents x 2, and diabetes arriving via EMS presenting with dizziness today. When she woke up this morning she had a low BGL of 56 and was unable to stand as "everything was spinning". She tried drinking juice to increase her BGL, but subsequently vomited. She then took Dramamine and vomited two more times. While en route to the emergency department, her BGL was 115 so she was not given D50. Currently she is still feeling dizzy. On exam she appears lethargic but otherwise has a normal exam. She is answering questions appropriately. Labs and EKG ordered; 25mg PO Meclizine administered. 1141: I interpreted patient's EKG as ectopic atrial rhythm with a rate of 79. 1157: Patient's nurse reports that the patient is feeling short of breath. Her O2Sats were 77% on room air, which is abnormal as she only wears oxygen at night. She will be placed on supplemental oxygen. Chest x-ray ordered. 1225: I reviewed patient's chest x-ray which reveals no acute findings. Patient' s O2Sats are also 100% while on supplemental oxygen. 1237: Reassessed patient, she is feeling better after medication and was able to stand without difficulty. 1302: Reassessed patient and discussed follow up with an ENT. I have also advised her to take Meclizine as prescribed as I suspect she has vertigo. Return precautions provided; patient is comfortable with this plan. - Data Points Laboratory Results: Laboratory Results 06/19/18 11:37 06/19/18 11:37 06/19/18 06/19/18 06/19/18 11:47 11:37 11:37 WBC RBC Hgb Hct MCV MCH MCHC RDW Plt Count MPV Neut % (Auto) Lymph % (Auto) Glynn % (Auto) Eos % (Auto) Baso % (Auto) Nucleat RBC Rel Count Absolute Neuts (auto) Absolute Lymphs (auto) Absolute Monos (auto) Absolute Eos (auto) Absolute Basos (auto) Absolute Nucleated RBC Immature Gran % Immature Gran # D-Dimer 1.95 ug/mLFEU H ug/mLFEU (0.00-0.50) Sodium 136 mEq/L mEq/L (135-145) Potassium 3.8 mEq/L mEq/L (3.5-5.2) Chloride 100 mEq/L mEq/L (97-110) Carbon Dioxide 30 mEq/l mEq/l (22-31) Anion Gap 6 mEq/L mEq/L (6-14) BUN 18 mg/dL mg/dL (7-23) Creatinine 0.9 mg/dL mg/dL (0.6-1.0) Estimated GFR > 60 Glucose 163 mg/dL H mg/dL (70-100) Calcium 9.6 mg/dL mg/dL (8.5-10.4) Magnesium 1.8 mg/dL mg/dL (1.6-2.3) POC Troponin I 0.01 ng/mL ng/mL (0.00-0.08) NT-Pro-B Natriuret Pep 243 pg/mL H pg/mL (0-125) 06/19/18 11:37 WBC 8.70 10^3/uL 10^3/uL (3.80-9.50) RBC 3.69 10^6/uL L 10^6/uL (4.18-5.33) Hgb 13.2 g/dL g/dL (12.6-16.3) Hct 39.1 % % (38.0-47.0) MCV 106.0 fL H fL (81.5-99.8) MCH 35.8 pg H pg (27.9-34.1) MCHC 33.8 g/dL g/dL (32.4-36.7) RDW 14.3 % % (11.5-15.2) Plt Count 280 10^3/uL 10^3/uL (150-400) MPV 10.3 fL fL (8.7-11.7) Neut % (Auto) 76.1 % H % (39.3-74.2) Lymph % (Auto) 8.4 % L % (15.0-45.0) Glynn % (Auto) 10.6 % % (4.5-13.0) Eos % (Auto) 3.9 % % (0.6-7.6) Baso % (Auto) 0.3 % % (0.3-1.7) Nucleat RBC Rel Count 0.0 % % (0.0-0.2) Absolute Neuts (auto) 6.62 10^3/uL H 10^3/uL (1.70-6.50) Absolute Lymphs (auto) 0.73 10^3/uL L 10^3/uL (1.00-3.00) Absolute Monos (auto) 0.92 10^3/uL H 10^3/uL (0.30-0.80) Absolute Eos (auto) 0.34 10^3/uL 10^3/uL (0.03-0.40) Absolute Basos (auto) 0.03 10^3/uL 10^3/uL (0.02-0.10) Absolute Nucleated RBC 0.00 10^3/uL 10^3/uL (0-0.01) Immature Gran % 0.7 % % (0.0-1.1) Immature Gran # 0.06 10^3/uL 10^3/uL (0.00-0.10) D-Dimer Sodium Potassium Chloride Carbon Dioxide Anion Gap BUN Creatinine Estimated GFR Glucose Calcium Magnesium POC Troponin I NT-Pro-B Natriuret Pep Medications Given: Discontinued Medications Meclizine HCl (Meclizine Hcl) 25 mg PO EDNOW ONE Stop: 06/19/18 11:49 Last Admin: 06/19/18 12:01 Dose: 25 mg Point of Care Test Results: Chemistry 06/19/18 11:47 POC Troponin I 0.01 ng/mL ng/mL (0.00-0.08) Departure - Departure Disposition: Home, Routine, Self-Care Clinical Impression: Dizziness, Vertigo Condition: Good Instructions: Meclizine (By mouth), Vertigo (ED), Lightheadedness (ED), Dizziness (ED) Additional Instructions: 1. Use meclizine as prescribed. 2. Drink plenty of fluids. 3. Return to the emergency department immediately for headache, numbness, weakness, severe vertigo, neck pain, inability to tolerate fluids by mouth or other worsening of condition. 4. If symptoms persist for more than 48 hours, followup with your primary care physician and/or an ENT for further evaluation. Referrals: Pablito Escoto MD [Medical Doctor] - As per Instructions [facility],. [Clinic] - As per Instructions Prescriptions: Meclizine HCl [Meclizine HCl 25 mg (RX,OTC)] 25 mg PO QID PRN #14 tab PRN Reason: Dizziness Report Scribed for: Angelo Tidwell Report Scribed by: Alyssa Pham Date of Report: 06/19/18 Time of Report: 12:26
[2018-06-19] MEDS ORDERED: MECLIZINE HCL 25 MG TAB PO ONE (11:48)
[2018-06-19 11:53] LABS: PLATELET COUNT 280 10^3/uL (150-400)
[2018-06-19 13:08] VITALS: BP 130/78
--- NOTE | 2018-06-19 13:49 | CPEKG ---
Test Reason : OPEN Blood Pressure : / mmHG Vent. Rate : 079 BPM Atrial Rate : 079 BPM P-R Int : 107 ms QRS Dur : 071 ms QT Int : 396 ms P-R-T Axes : 262 -33 033 degrees QTc Int : 455 ms Ectopic atrial rhythm Short TX interval Left axis deviation Confirmed by Angelo Tidwell ([id number]) on 06/19/2018 1:49:17 PM Referred By: Angelo Tidwell Confirmed By:Angelo Tidwell
== END 2018-06-19 13:19 | disposition home or self-care (01) ==
LOC: EDUNIT#
DX: R42 Dizziness and giddiness (principal); I10 Essential (primary) hypertension; E11.9 Type 2 diabetes mellitus without complications; Z95.5 Presence of coronary angioplasty implant and graft
CPT/HCPCS: 84484-ER

== ENCOUNTER → 2018-07-05 | Outpatient (CLI) | payer OTHER, MEDICARE | DX: I35.0 Nonrheumatic aortic (valve) stenosis (principal) ==

== ENCOUNTER 2018-07-15 18:59 | Emergency (ER) | payer OTHER, MEDICARE ==
[2018-07-15] MEDS ORDERED: NS 500 ML IV ONE (19:04)
[2018-07-15] MEDS ORDERED: D50W 25 GM/50 ML SYR IVP ONE ×2 (19:09→19:20)
[2018-07-15] MEDS ORDERED: ONDANSETRON 4 MG/2 ML VIAL IVP ONE (19:15)
[2018-07-15] MEDS ORDERED: LORazepam 2 MG/ML INJ IVP ONE (19:15)
[2018-07-15] MEDS ORDERED: ONDANSETRON 4 MG/2 ML VIAL ONE (19:16)
[2018-07-15] MEDS ORDERED: LORazepam 2 MG/ML INJ ONE (19:17)
--- NOTE | 2018-07-15 19:21 | EDPHY ---
H & P Smoking Status: Former smoker <Supa Hubbard B - Last Filed: 07/15/18 21:08> <Osman Avila - Last Filed: 07/15/18 22:43> Time Seen by Provider: 07/15/18 18:59 HPI/ROS: HPI Vertigo. 72-year-old female by private vehicle with her . This patient reports sudden-onset vertigo starting at approximately 5:30 p.m.. She reports she was sitting on her bed when she started feeling vertiginous. She describes this classically as the room spinning around. And movement with there is no movement. She has difficulty ambulating with her walker. She walks with a walker baseline. She does not have any headache. She denies any loss of sensation or weakness in her extremities. She denies any changes in vision. No neck pain. No fever. She was seen in our emergency department back in June of this year with a similar presentation. Her blood sugar at that time was low on initial presentation in the 50s. She feels that her blood sugar is low at this time. She has a history of type 1 diabetes and has an insulin pump. On arrival we have turned off the insulin pump. Point of care glucose is 56. She describes this episode of vertigo a sudden-onset and identical to her previous episode in June. She states that is worse with any kind of head movement. She has had associated nausea with 1 episode of nonbilious, nonbloody vomiting prior to arrival. She took 1, 25 mg meclizine tablet that she had left over from a prescription from her previous emergency department visit. She has had no relief from this medication. ROS: Constitutional: No fever, no chills. As above. Eyes: No discharge. No changes in vision. ENT: No sore throat. No nasal congestion or rhinorrhea. Respiratory: No cough. No shortness of breath. Cardiac: No chest pain, no palpitations. Gastrointestinal: No abdominal pain, no vomiting, no diarrhea. Genitourinary: No hematuria. No dysuria or increased frequency with urination. Musculoskeletal: No back pain. No neck pain. No myalgias or arthralgias. Skin: No rashes. Neurological: No headache. No focal weakness or altered sensation. Past medical history: Hypertension, type 1 diabetes, rheumatoid arthritis, lupus, coronary artery disease, cardiac stents x2. Back surgery x6. Cervical spine surgery 3 weeks ago for disc bulging/herniation. Macular degeneration, hypothyroidism, osteoporosis. Social history: She is here with her . No alcohol. Denies smoking. Physical Exam: General Appearance: Alert, he appears uncomfortable but not in distress. This patient is responding to questions appropriately and in full sentences. This patient appears well-hydrated and well-nourished. Eyes: Pupils equal and round and reactive to light at 3-2 mm bilaterally, no pallor or injection. No lid edema, erythema or injection. Marked Uni directional horizontal nystagmus. ENT, Mouth: Mucous membranes are moist. The pharyngeal tissues are unremarkable. No edema or swelling. No asymmetry suggestive of abscess. No erythema or exudates. No tongue lacerations or abrasions. Respiratory: There are no retractions, lungs are clear to auscultation with good air movement bilaterally. Cardiovascular: Regular rate and rhythm. No murmur. Gastrointestinal: Abdomen is soft and nontender, no masses, bowel sounds normal. No focal tenderness at McBurney's point. No Palacio sign. Neurological: Motor sensory function is grossly intact. Cranial nerves are grossly normal. Cerebellar function: Heel to woods function is normal, finger- to-nose testing, she is slow to get to target but does get there. Skin: Warm and dry, no rashes. Musculoskeletal: Neck is supple and nontender. Extremities are symmetrical. All joints range without pain or impingement. Psychiatric: No agitation. No depression. Database: EKG: EKG time is 7:21 p.m.; EKG shows a narrow complex normal ectopic atrial rhythm with a ventricular rate of 85. Borderline left axis deviation noted. The [place], QRS, QT intervals are within normal limits. There are no ST-T wave changes indicative of ischemic or injury pattern. No evidence of right heart strain. Interpreted by me. Imaging: Procedures: Emergency department course: Triage vital signs reviewed. She is mildly hypertensive. Vital signs are otherwise normal. She is afebrile. IV was placed. She was started on IV normal saline with 500 cc to be given over the next hour. Point of care glucose is initially 56. Possible correlation based on her previous history with hypoglycemia and her vertigo. She was given an amp of D50 IV. Insulin pump was turned off on arrival. EKG obtained and reviewed by myself. She has a mixed picture. Her presentation is most consistent with a peripheral etiology. However she was slow on some of her cerebellar function testing. MRI noncontrast of the brain will be obtained. She will be given 4 mg of IV Zofran and 0.5 mg of IV Ativan for treatment of her vertigo initially. EKG obtained and reviewed by myself. Repeat blood sugar at at 7:46 p.m. 160. 8:45 p.m., the patient was re-evaluated, she is feeling better at this time. She is responding to questions appropriately. Repeat neurologic Assessment is nonfocal. She will be sent to MRI now. If MRI normal expected disposition is discharge to home with her if she is feeling better. Care turned over to Dr. Osman Avila at 9:00 p.m.. Differential Diagnosis: The differential diagnosis on this patient includes but is not limited to peripheral versus central etiology of vertigo. Medication reaction, alcohol intoxication unlikely. This represents a partial list of diagnoses considered. These considerations are based on history, physical exam, past history, reassessment and diagnostic testing. (Supa Hubbard) Constitutional: Initial Vital Signs Temperature (C) 36.4 C 07/15/18 19:00 Heart Rate 92 07/15/18 19:00 Respiratory Rate 18 07/15/18 19:00 Blood Pressure 141/87 H 07/15/18 19:00 O2 Sat (%) 97 07/15/18 19:00 O2 Delivery Mode Room Air Allergies/Adverse Reactions: cephalexin Allergy (Unknown, Verified 06/19/18 11:53) ibuprofen Allergy (Unknown, Verified 06/19/18 11:53) nitrofurantoin Allergy (Unknown, Verified 06/19/18 11:53) ciprofloxacin HCl [From Cipro] Allergy (Verified 06/19/18 11:53) codeine Allergy (Verified 06/19/18 11:53) Sulfa (Sulfonamide Antibiotics) Allergy (Verified 06/19/18 11:53) tramadol Allergy (Verified 06/19/18 11:53) ciprofloxacin HCl Allergy (Unknown, Uncoded 11/01/17 13:35) Home Medications: Medication Instructions Recorded Folic Acid [Folic Acid 1 MG (*)] 1 mg PO DAILY 11/09/12 Insulin Pump, Patient Own 1 ea MISC AD 09/05/13 Aspirin EC [Aspirin EC 81 mg (*)] 81 mg PO HS 06/05/16 Denosumab [Prolia] 60 mg SQ .[id number] 06/05/16 Fluocinolone 0.01% [Synalar 0.01%] 1 manju TP BID PRN 06/05/16 Cholecalciferol Vit D3 [Vitamin D3 1,000 units PO BID 10/22/17 (*)] Herbals/Supplements -Info Only 1 ea PO DAILY 10/22/17 [place]-3 Fatty Acids [Fish Oil 1000 1,000 mg PO HS 10/22/17 mg (*)] Polyethylene Glycol 3350 [Miralax 17 gm PO BID pkt 10/26/17 17 gm (*)] Acetaminophen [Tylenol 325mg (*)] 650 mg PO Q4HRS PRN tab 11/01/17 Bupropion HCl [Wellbutrin Xl] 300 mg PO DAILY #30 tab.er.24h 11/01/17 Cyclobenzaprine [Flexeril 10 MG 10 mg PO HS #30 tab 11/01/17 (*)] Enoxaparin [Lovenox 40 MG (*)] 40 mg SC DAILY 28 Days #16 syr 11/01/17 Escitalopram Oxalate [Lexapro 10 10 mg PO DAILY #30 tab 11/01/17 MG] Estradiol [Estrace Vaginal (*)] 1 manju VG MWF@21 #12 crtube 11/01/17 Glucagon,Human Recombinant 1 mg IJ PRN PRN #1 kit 11/01/17 [Glucagon Emergency Kit] Levothyroxine [Synthroid 88 mcg 88 mcg PO DAILY@07 #30 tab 11/01/17 (*)] Methotrexate Sodium [Rheumatrex] 7.5 mg PO LYONS #12 tab 11/01/17 Metoprolol Succinate Xr [Toprol Xl 25 mg PO HS #30 tab 11/01/17 25 mg (*)] Mirabegron [Myrbetriq] 25 mg PO HS #30 tab.er.24h 11/01/17 Pregabalin [Lyrica 75mg (*)] 75 mg PO TID #90 cap 11/01/17 Rosuvastatin Calcium [Crestor] 10 mg PO HS #30 tablet 11/01/17 Saliva Substitute Combo No.9 15 ml MM Q2 PRN bottle 11/01/17 [Biotene (*)] Tofacitinib Citrate [Xeljanz Xr] 11 mg PO DAILY #30 tab.er.24h 11/01/17 Zolpidem Tartrate [Ambien 5MG (*)] 5 mg PO HS #30 tab 11/01/17 oxyCODONE/APAP 5/325 [Percocet 1 - 2 tab PO Q4HRS PRN #60 tab 11/01/17 5/325 (*)] predniSONE 4 mg PO DAILY #30 tab 11/01/17 Meclizine HCl [Meclizine HCl 25 mg 25 mg PO QID PRN #14 tab 06/19/18 (RX,OTC)] Medical Decision Making <Supa Hubbard - Last Filed: 07/15/18 21:08> - Diagnostics Imaging: Discussed imaging studies w/ crusher assembler Radiologist <Osman Avila - Last Filed: 07/15/18 22:43> - Diagnostics Imaging Results: Imaging Impressions Brain MRI 07/15/18 19:29 Impression: 1. Age-related cerebral cortical atrophy and extensive chronic microvascular ischemic gliosis, with no evidence of an acute or subacute infarction. 2. Postsurgical change to the cervical spine, which is incompletely imaged, with an apparent dorsal disk osteophyte complex at the posterior margin of C3 resulting in some associated canal stenosis. Findings were discussed with Osman Avila MD at 21:30, on 07/15/2018. Other Provider: Care assumed from Dr. Hubbard at 9:00 p.m.. Patient walks with a walker at baseline. She presents with vertigo. Plan is for MRI and then disposition depending on how well her symptoms have improved as long as no cerebellar ischemia is seen. 2131: MRI shows age appropriate atrophy, no infarct including cerebellum; Emily. 2205: Patient was able to walk with steady gait. She feels comfortable going home which is what she would prefer to do which I think is reasonable. (Osman Avila) - Data Points Laboratory Results: Laboratory Results 07/15/18 19:15 07/15/18 19:15 07/15/18 07/15/18 07/15/18 19:46 19:15 19:15 WBC RBC Hgb POC Hgb 13.6 gm/dL gm/dL (12.6-16.3) Hct POC Hct 40 % % (38-47) MCV MCH MCHC RDW Plt Count MPV Neut % (Auto) Lymph % (Auto) Falls % (Auto) Eos % (Auto) Baso % (Auto) Nucleat RBC Rel Count Absolute Neuts (auto) Absolute Lymphs (auto) Absolute Monos (auto) Absolute Eos (auto) Absolute Basos (auto) Absolute Nucleated RBC Immature Gran % Seg Neutrophils % Band Neutrophils % Lymphocytes % Monocytes % Eosinophils % Basophils % Metamyelocytes % Myelocytes % Promyelocytes % Blast Cells % Immature Gran # Absolute Seg Neuts Absolute Band Neuts Absolute Lymphocytes Absolute Monocytes Absolute Eosinophils Absolute Basophils Absolute Metamyelocyte Absolute Myelocytes Absolute Promyelocytes Absolute Plasma Cells Nucleated RBCs Absolute Blast Cells Plasma Cells % Platelet Estimate Oval Macrocytes Schistocytes POC Sodium 138 mEq/L mEq/L (135-145) Sodium 135 mEq/L mEq/L (135-145) POC Potassium 3.6 mEq/L mEq/L (3.3-5.0) Potassium 3.8 mEq/L mEq/L (3.5-5.2) POC Chloride 99 mEq/L mEq/L (97-110) Chloride 99 mEq/L mEq/L (97-110) Carbon Dioxide 27 mEq/l mEq/l (22-31) POC Total CO2 28 mEq/L mEq/L (22-31) Anion Gap 9 mEq/L mEq/L (6-14) POC BUN 21 mg/dL mg/dL (7-23) BUN 22 mg/dL mg/dL (7-23) Creatinine 0.9 mg/dL mg/dL (0.6-1.0) POC Creatinine 0.9 mg/dL mg/dL (0.6-1.0) Estimated GFR > 60 Glucose 53 mg/dL L mg/dL (70-100) POC Glucose 160 mg/dL H mg/dL 56 mg/dL L mg/dL (70-100) (70-100) Calcium 9.4 mg/dL mg/dL (8.5-10.4) POC Troponin I 07/15/18 07/15/18 19:15 19:13 WBC 9.06 10^3/uL 10^3/uL (3.80-9.50) RBC 3.50 10^6/uL L 10^6/uL (4.18-5.33) Hgb 12.2 g/dL L g/dL (12.6-16.3) POC Hgb Hct 36.3 % L % (38.0-47.0) POC Hct MCV 103.7 fL H fL (81.5-99.8) MCH 34.9 pg H pg (27.9-34.1) MCHC 33.6 g/dL g/dL (32.4-36.7) RDW 14.3 % % (11.5-15.2) Plt Count 350 10^3/uL 10^3/uL (150-400) MPV 9.5 fL fL (8.7-11.7) Neut % (Auto) Not Reported Lymph % (Auto) Not Reported Falls % (Auto) Not Reported Eos % (Auto) Not Reported Baso % (Auto) Not Reported Nucleat RBC Rel Count Not Reported Absolute Neuts (auto) Not Reported Absolute Lymphs (auto) Not Reported Absolute Monos (auto) Not Reported Absolute Eos (auto) Not Reported Absolute Basos (auto) Not Reported Absolute Nucleated RBC Not Reported Immature Gran % Not Reported Seg Neutrophils % 63.0 % % Band Neutrophils % 6.0 % % Lymphocytes % 20.0 % % Monocytes % 9.0 % % Eosinophils % 1.0 % % Basophils % 1.0 % % Metamyelocytes % 0.0 % % Myelocytes % 0.0 % % Promyelocytes % 0.0 % % Blast Cells % 0.0 % % Immature Gran # Not Reported Absolute Seg Neuts 5.71 10^3/uL 10^3/uL (1.70-6.50) Absolute Band Neuts 0.54 10^3/uL 10^3/uL (0.00-0.70) Absolute Lymphocytes 1.81 10^3/uL 10^3/uL (1.00-3.00) Absolute Monocytes 0.82 10^3/uL H 10^3/uL (0.30-0.80) Absolute Eosinophils 0.09 10^3/uL 10^3/uL (0.03-0.40) Absolute Basophils 0.09 10^3/uL 10^3/uL (0.02-0.10) Absolute Metamyelocyte 0.00 10^3/mL 10^3/mL (0.00-0.00) Absolute Myelocytes 0.00 10^3/mL 10^3/mL (0.00-0.00) Absolute Promyelocytes 0.00 10^3/uL 10^3/uL (0.00-0.00) Absolute Plasma Cells 0.00 10^3/uL 10^3/uL (0.00-0.00) Nucleated RBCs 0 /100 WBC /100 WBC (0-0) Absolute Blast Cells 0.00 10^3/uL 10^3/uL (0.00-0.00) Plasma Cells % 0.0 % % Platelet Estimate ADEQUATE (ADEQ) Oval Macrocytes 2+ H Schistocytes 1+ H POC Sodium Sodium POC Potassium Potassium POC Chloride Chloride Carbon Dioxide POC Total CO2 Anion Gap POC BUN BUN Creatinine POC Creatinine Estimated GFR Glucose POC Glucose Calcium POC Troponin I 0.02 ng/mL ng/mL (0.00-0.08) Medications Given: Discontinued Medications Dextrose (Dextrose 50% Syringe) 25 gm IVP EDNOW ONE Stop: 07/15/18 19:21 Last Admin: 07/15/18 19:21 Dose: 25 gm Sodium Chloride (Ns) 500 mls @ 1,000 mls/hr IV EDNOW ONE PRN Reason: Protocol Stop: 07/15/18 19:33 Last Admin: 07/15/18 19:22 Dose: 500 mls Lorazepam (Ativan Injection) 0.5 mg IVP EDNOW ONE Stop: 07/15/18 19:16 Last Admin: 07/15/18 19:21 Dose: 0.5 mg Ondansetron HCl (Zofran) 4 mg IVP EDNOW ONE Stop: 07/15/18 19:16 Last Admin: 07/15/18 19:21 Dose: 4 mg Point of Care Test Results: Chemistry 07/15/18 07/15/18 07/15/18 19:46 19:15 19:13 POC Sodium 138 mEq/L mEq/L (135-145) POC Potassium 3.6 mEq/L mEq/L (3.3-5.0) POC Chloride 99 mEq/L mEq/L (97-110) POC Total CO2 28 mEq/L mEq/L (22-31) POC BUN 21 mg/dL mg/dL (7-23) POC Creatinine 0.9 mg/dL mg/dL (0.6-1.0) POC Glucose 160 mg/dL H mg/dL 56 mg/dL L mg/dL (70-100) (70-100) POC Troponin I 0.02 ng/mL ng/mL (0.00-0.08) ISTAT H&H 07/15/18 19:15 POC Hgb 13.6 gm/dL gm/dL (12.6-16.3) POC Hct 40 % % (38-47) Departure <Supa Hubbard B - Last Filed: 07/15/18 21:08> <Osman Avila - Last Filed: 07/15/18 22:43> - Departure Disposition: Home, Routine, Self-Care Clinical Impression: Vertigo, Hypoglycemia Condition: Good Instructions: Vertigo (ED) Additional Instructions: Read and follow provided instructions. Follow-up with your primary care physician or um specialist on Tuesday for re- evaluation. Your blood sugars are running low with your current insulin pump settings. This may be contributing to your vertigo. Take meclizine, 25 mg, as previously prescribed. 1 tablet every 6 hr as needed for vertigo. Return to the emergency department for worsening symptoms or other serious concerns. Referrals: Cady Johnson MD [Primary Care Provider] - As per Instructions
[2018-07-15 19:23] LABS: PLATELET COUNT 350 10^3/uL (150-400)
[2018-07-15 22:16] VITALS: BP 122/65
--- NOTE | 2018-07-18 07:07 | CPEKG ---
Test Reason : OPEN Blood Pressure : / mmHG Vent. Rate : 085 BPM Atrial Rate : 085 BPM P-R Int : 124 ms QRS Dur : 081 ms QT Int : 406 ms P-R-T Axes : 259 -29 034 degrees QTc Int : 483 ms Ectopic atrial rhythm Borderline left axis deviation Confirmed by Supa Hubbard ([id number] on 07/18/2018 7:07:06 AM Referred By: Supa Hubbard Confirmed By:Supa Hubbard
== END 2018-07-15 22:15 | disposition home or self-care (01) ==
DX: R42 Dizziness and giddiness (principal); E10.649 Type 1 diabetes mellitus with hypoglycemia without coma; I10 Essential (primary) hypertension; Z96.41 Presence of insulin pump (external) (internal)
CPT/HCPCS: 70551; 93005; 96374; 96375; 99285; J2060; J2405; 82435-PO; 82565-PO; 82947-PO; 84132-PO; 84295-PO; 84484-ER; 84520-PO; 85014-ER

== ENCOUNTER 2018-07-24 13:03 | Outpatient (CLI) | payer OTHER, MEDICARE | END 2018-07-24 13:35 | disposition home or self-care (01) | LOC: FCATH 13:03 ==

== ENCOUNTER 2018-08-08 07:06 | Day surgery (SDC) | payer OTHER, MEDICARE | END 2018-08-08 15:33 | disposition home or self-care (01) | LOC: FCATH 07:06 ==

== ENCOUNTER → 2018-08-09 | Day surgery (SDC) | payer OTHER, MEDICARE | LOC: FIMAGING 09:10 → FCATH 10:39 ==

== ENCOUNTER → 2018-08-10 | Outpatient (CLI) | payer OTHER, MEDICARE | LOC: FIMAGING 13:24 ==

== ENCOUNTER 2018-08-14 07:40 | Inpatient (IN) | payer OTHER, MEDICARE | END 2018-08-16 12:03 | disposition home or self-care (01) | LOC: F2N 07:40 → F2W 18:03 ==